=== PATIENT | male | born 1960 | race Caucasian/White ===

== ENCOUNTER → 2018-07-04 | Day surgery (SDC) | payer MEDICARE ==
[~2018-07-04] MED LIST: BUPIVACAINE 0.25% 30ML SDV INJ ONE; FENTANYL CITRATE/PF 100MCG/2 ML INJ ONE; IOPAMIDOL 200 MG/ML 20 ML VIAL IT ONE; LIDOCAINE HCL 1% 30ML-PF VIAL ONE; LUNESTA3 MG PO; MIDAZOLAM HCL 2 MG/2 ML VIAL ONE; NORCO 10-325 T1 EACH PO; OMEPRAZOLE40 MG PO; PROPOFOL IV EMULSION 10 MG/ML 20 ML VIAL ONE; TRAMADOL HCL100 MG PO; TRIAMCINOLONE ACET 40 MG/ML VIAL ONE
--- OUTSIDE RECORDS SUMMARY | 2018-07-04 05:20 | XMS REPORT | Clinical Summary ---
Author Author [facility] Address Unknown Phone Unavailable Care Team Providers Care Mechatronics Technician Name Role Phone David Tracey MD PCP Allergies No Known Allergies Medications End Date Status Medication Sig Dispensed Refills Start Date Active levETIRAcetam (KEPPRA) Take 500 mg 0 500 MG tablet by mouth nightly. Active omeprazole (PriLOSEC) 40 Take 40 mg by 0 MG capsule mouth 2 (two) times a day. Active HYDROcodone-acetaminophen Take 1 tablet 0 (NORCO 10-325) 10-325 mg by mouth 3 per tablet (three) times a day as needed for moderate pain. Active eszopiclone (LUNESTA) 3 Take 3 mg by 0 mg tablet mouth nightly. 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 Last Filed Vital Signs Not on file Plan of Treatment Health Maintenance Due Date Last Done Comments COLON CANCER SCREENING 2008 SHINGLES VACCINES (#1) 2008 INFLUENZA VACCINE 10/03/2018 Results Not on fileafter 07/03/2017 Insurance Payer Benefit Subscriber ID Type Phone Address Plan / Group BCBS BCBS OUT xxxxxxxxxxxx PPO OF STATE Advance Directives Patient has advance care planning documents on file. For more information, bry canas contact: Tristin Frye [address] [facility] [place] [address]
--- OUTSIDE RECORDS SUMMARY | 2018-07-04 05:21 | XMS REPORT | CCD ---
Author Author Auto Generated Organization [facility] Address Unknown Phone Unavailable Care Team Providers Care Cage Unloader Name Role Phone Ayo Sommer Dominic [phone] Allergies, Adverse Reactions, Alerts Substance Reaction Status No Known Allergies Active Problem List Condition Effective Dates Status GERD [Gastroesophageal reflux disease] Active SEIZURES Active Medications Medication Instructions Start Date End Date Status cefazolin 2 gm, Soln-IV, IV Piggyback, Once, 11/11/2012 11/11/2012 Completed infuse over 30 minutes, first dose 11/11/12 7:00:00 CDT, stop date 11/11/12 7:00:00 CDT cefazolin 2 gm, Powder-Inj, IV, Once, first 11/11/2012 11/11/2012 Completed dose 11/11/12 7:31:00 CDT, stop date 11/11/12 7:31:00 CDT neostigmine 3 mg=3 mL, Injection, IV, Once, 11/11/2012 11/11/2012 Completed first dose 11/11/12 8:16:00 CDT, stop date 11/11/12 8:16:00 CDT ephedrine 15 mg=0.3 mL, Injection, IV, Once, 11/11/2012 11/11/2012 Completed first dose 11/11/12 7:47:00 CDT, stop date 11/11/12 7:47:00 CDT [facility] Medication 801.65 mL, Soln-IV, IV, Once, first 11/11/2012 11/11/2012 Completed dose 11/11/12 8:37:08 CDT, stop date 11/11/12 8:37:08 CDT glycopyrrolate 0.4 mg=2 mL, Injection, IV, Once, 11/11/2012 11/11/2012 Completed first dose 11/11/12 8:16:00 CDT, stop date 11/11/12 8:16:00 CDT LR 1,000 mL 1,000 mL, IV, 100 mL/hr, start date 11/11/2012 11/11/2012 Discontinued 11/11/12 6:13:00 CDT, For Adults omeprazole 40 mg 40 mg=1 caps, Oral, Daily, 0 11/05/2012 11/19/2012 Ordered oral delayed release Refill(s) capsule [place] 7.5 mg-325 mg 1 tabs, Oral, q6hr, 0 Refill(s) 11/05/2012 11/19/2012 Ordered oral tablet Keppra 500 mg oral 500 mg=1 tabs, Oral, BID, 0 11/05/2012 11/19/2012 Ordered tablet Refill(s) Lunesta 3 mg oral 3 mg=1 tabs, Oral, qHS, PRN for 11/05/2012 11/19/2012 Ordered tablet insomnia, 0 Refill(s) acetaminophen 1,000 mg, Soln-IV, IV, Once, first 11/11/2012 11/11/2012 Completed dose 11/11/12 7:59:20 CDT, stop date 11/11/12 7:59:20 CDT ondansetron 4 mg=2 mL, Injection, IV, Once, 11/11/2012 11/11/2012 Completed first dose 11/11/12 7:41:00 CDT, stop date 11/11/12 7:41:00 CDT ketorolac 30 mg=1 mL, Injection, IV, Once, 11/11/2012 11/11/2012 Completed first dose 11/11/12 7:41:00 CDT, stop date 11/11/12 7:41:00 CDT midazolam 2 mg=2 mL, Injection, IV, Once, 11/11/2012 11/11/2012 Completed first dose 11/11/12 6:46:00 CDT, stop date 11/11/12 6:46:00 CDT fentanyl 100 mcg=2 mL, Injection, IV, Once, 11/11/2012 11/11/2012 Completed first dose 11/11/12 6:46:00 CDT, stop date 11/11/12 6:46:00 CDT ropivacaine 25 mL, Injection, IV, Once, first 11/11/2012 11/11/2012 Completed dose 11/11/12 6:51:00 CDT, stop date 11/11/12 6:51:00 CDT rocuronium 35 mg=3.5 mL, Injection, IV, Once, 11/11/2012 11/11/2012 Completed first dose 11/11/12 7:35:00 CDT, stop date 11/11/12 7:35:00 CDT lidocaine topical 1 kit, Kit, TOP, Once, first dose 11/11/2012 11/11/2012 Completed 11/11/12 7:35:00 CDT, stop date 11/11/12 7:35:00 CDT propofol 200 mg=20 mL, Emulsion, IV, Once, 11/11/2012 11/11/2012 Completed first dose 11/11/12 7:35:00 CDT, stop date 11/11/12 7:35:00 CDT lidocaine 2 mL, Injection, IV, Once, first 11/11/2012 11/11/2012 Completed dose 11/11/12 7:35:00 CDT, stop date 11/11/12 7:35:00 CDT ondansetron 4 mg=2 mL, Injection, IV Push, 11/11/2012 11/11/2012 Discontinued q30min PRN for nausea/vomiting, order duration: 2 doses, first dose 11/11/12 8:20:00 CDT, stop date Limited # of times labetalol 5 mg=1 mL, Injection, IV Push, 11/11/2012 11/11/2012 Discontinued q5min PRN for hypertension, order duration: 4 doses, first dose 11/11/12 8:20:00 CDT, stop date Limited # of times Demerol HCl 12.5 mg=0.5 mL, Injection, IV Push, 11/11/2012 11/11/2012 Discontinued q5min PRN for pain mild-moderate (1-6), order duration: 4 doses, first dose 11/11/12 8:20:00 CDT, stop date Limited # of times morphine 2 mg=0.2 mL, Injection, IV Push, 11/11/2012 11/11/2012 Discontinued q5min PRN for pain severe (7-10), order duration: 5 doses, first dose 11/11/12 8:20:00 CDT, stop date Limited # of times Vital Signs Most recent to oldest [Reference Range]: 1 2 3 Temperature Oral [35.8-37.3 DegC] 36.9 DegC (11/05/2012 10:33:00) Temperature Tympanic [36.6-38.1 DegC] 36.2 DegC *LOW* (11/11/2012 08:30:00) Temperature Temporal Artery [36.3-37.8 DegC] 36.1 DegC *LOW* (11/11/2012 06:19:00) Peripheral Pulse Rate [55-105 bpm] 58 bpm (11/11/2012 06:19:00) 60 bpm (11/05/2012 10:33:00) Heart Rate Monitored [60-100 bpm] 65 bpm (11/11/2012 09:00:00) 62 bpm (11/11/2012 08:55:00) 64 bpm (11/11/2012 08:50:00) Respiratory Rate [12-20] 12 (11/11/2012 09:00:00) 12 (11/11/2012 08:55:00) 13 (11/11/2012 08:50:00) SpO2 [90-100 %] 97 % (11/11/2012 09:00:00) 97 % (11/11/2012 08:55:00) 97 % (11/11/2012 08:50:00) Systolic Blood Pressure [110-120 mmHg] 152 mmHg *HI* (11/11/2012 09:00:00) 151 mmHg *HI* (11/11/2012 08:55:00) 157 mmHg *HI* (11/11/2012 08:50:00) Diastolic Blood Pressure [65-85 mmHg] 88 mmHg *HI* (11/11/2012 09:00:00) 89 mmHg *HI* (11/11/2012 08:55:00) 89 mmHg *HI* (11/11/2012 08:50:00) Height 175 cm (11/11/2012 06:19:00) Height/Length Estimated 175 cm (11/05/2012 10:33:00) Height/Length Dosing 175.00 cm (11/11/2012 06:19:00) Height Inches 69 in (11/11/2012 06:19:00) Weight 78 kg (11/11/2012 06:19:00) 75.9 kg (11/05/2012 10:33:00) Weight Dosing 78.000 kg (11/11/2012 06:19:00) 75.900 kg (11/05/2012 10:33:00) Weight Pounds 172 lb (11/11/2012 06:19:00) 167 lb (11/05/2012 10:33:00) Body Mass Index 25.47 kg/m2 (11/11/2012 06:19:00) Procedures Procedures Date Related Diagnosis RIGHT FEMUR RIGHT KNEE SCOPE(MANY) RIGTH KNEE REPLACEMENT
--- OUTSIDE RECORDS SUMMARY | 2018-07-04 05:21 | XMS REPORT | Continuity of Care Document ---
Author Author [facility] Interface Address Unknown Phone Unavailable Problems Problem Status Onset Date Classification Date Reported Comments Source Discharge Diagnosis: Primary osteoarthritis, left shoulder 06/05/2016 06/07/2016 [facility] GERD [Gastroesophageal reflux disease] Active Problem 01/22/2013 [facility] Chronic pain Active Problem 06/07/2016 [facility] GERD [Gastroesophageal reflux disease] Active Problem 06/07/2016 [facility] Insomnia Active Problem 06/07/2016 [facility] Osteoarthritis Active Problem 06/07/2016 [facility] SEIZURES Active Problem 06/07/2016 [facility] Medications Medication Details Route Status Patient Instructions Ordering Provider Order Date Source acetaminophen IVPB 1,000 mg, Soln-IV, IV Piggyback, Once, infuse over 15 minutes, first dose 06/05/16 9:00:00 CDT, stop date 06/05/16 9:00:00 CDTNotes: Max 4gm acetaminophen in 24 hours Inactive 06/05/2016 [facility] Misc Medication 500 mL, Soln-IV, IV, Once, first dose 06/05/16 8:35:00 CDT, stop date 06/05/16 8:35:00 CDT Inactive 06/05/2016 [facility] Ketorolac 30 mg=1 mL, Injection, IV Push, Once PRN for pain mild-moderate (1-6), first dose 06/05/16 8:25:00 CDTNotes: "Restricted: No more than 5 days of therapy from any route of administration." Inactive 06/05/2016 [facility] Demerol HCl 12.5 mg=0.5 mL, Injection, IV Push, q5min PRN for shivers, order duration: 4 doses, first dose 06/05/16 8:25:00 CDT, stop date Limited # of times Inactive 06/05/2016 [facility] Morphine 1 mg=0.1 mL, Injection, IV Push, q5min PRN for Pain Moderate (4-6), order duration: 5 doses, first dose 06/05/16 8:25:00 CDT, stop date Limited # of times Inactive 06/05/2016 [facility] Labetalol 5 mg=1 mL, Injection, IV Push, q5min PRN for hypertension, order duration: 4 doses, first dose 06/05/16 8:25:00 CDT, stop date Limited # of times Inactive 06/05/2016 [facility] Ondansetron 4 mg=2 mL, Injection, IV Push, q30min PRN for nausea/vomiting, order duration: 2 doses, first dose 06/05/16 8:25:00 CDT, stop date Limited # of times Inactive 06/05/2016 [facility] propofol 200 mg=20 mL, Emulsion, IV, Once, first dose 06/05/16 7:51:00 CDT, stop date 06/05/16 7:51:00 CDT Inactive 06/05/2016 [facility] succinylcholine 10 mg=0.5 mL, Injection, IV, Once, first dose 06/05/16 7:51:00 CDT, stop date 06/05/16 7:51:00 CDT Inactive 06/05/2016 [facility] ceFAZolin 2 gm, Soln-IV, IV, Once, first dose 06/05/16 7:39:00 CDT, stop date 06/05/16 7:39:00 CDT Inactive 06/05/2016 [facility] ropivacaine 100 mg=20 mL, Injection, IV, Once, first dose 06/05/16 7:03:00 CDT, stop date 06/05/16 7:03:00 CDT Inactive 06/05/2016 [facility] midazolam 4 mg=4 mL, Injection, IV, Once, first dose 06/05/16 7:02:00 CDT, stop date 06/05/16 7:02:00 CDT Inactive 06/05/2016 [facility] fentaNYL 100 mcg=2 mL, Injection, IV, Once, first dose 06/05/16 7:01:00 CDT, stop date 06/05/16 7:01:00 CDT Inactive 06/05/2016 [facility] Lidocaine Hydrochloride 10 MG/ML Injectable Solution 0.5 mL, Injection, Subcutaneous, Once, first dose 06/05/16 7:00:00 CDT, stop date 06/05/16 7:00:00 CDT Inactive 06/05/2016 [facility] Cefazolin 2 gm, Soln-IV, IV Piggyback, Once, infuse over 30 minutes, first dose 06/05/16 7:00:00 CDT, stop date 06/05/16 7:00:00 CDT, Prophylaxis Inactive 06/05/2016 [facility] LR 1,000 mL 1,000 mL, IV, 100 mL/hr, start date 06/05/16 6:18:00 CDT, For Adults Inactive 06/05/2016 [facility] rivaroxaban 10 MG Oral Tablet [Xarelto] 10 mg=1 tabs, Oral, Daily, # 21 tabs, 0 Refill(s) No Longer Active 03/11/2015 [facility] Cyclobenzaprine hydrochloride 5 MG Oral Tablet [Flexeril] 5 mg=1 tabs, Oral, TID, X 10 days, # 30 tabs, 0 Refill(s) [id number] 03/11/2015 [facility] Xarelto 10 mg oral tablet 10 mg=1 tabs, Oral, Daily, # 21 tabs, 0 Refill(s) Active Dre EVANS 03/11/2015 [facility] Flexeril 5 mg oral tablet 5 mg=1 tabs, Oral, TID, X 10 days, # 30 tabs, 0 Refill(s) Active Dre EVANS 03/11/2015 [facility] Acetaminophen 300 MG / Codeine Phosphate 60 MG Oral Tablet [Tylenol with Codeine #4] 1 tabs, Oral, q4hr, # 50 tabs, 0 Refill(s) [id number] 03/11/2015 [facility] Tylenol with Codeine #4 oral tablet 1 tabs, Oral, q4hr, # 50 tabs, 0 Refill(s) Active Dre EVANS 03/11/2015 [facility] ketorolac 10 mg=1 tabs, Tab, Oral, q6hr PRN for pain, first dose 03/10/15 6:00:00 [employer], stop date 03/15/15 0:00:00 [employer]SEL[employer]"Restricted: No more than 5 days of therapy from any route of administration." No Longer Active Dre EVANS 03/10/2015 [facility] Clinton 10 mg-325 mg oral tablet 2 tabs, Tab, Oral, q4hr PRN for pain severe (7-10), first dose 03/09/15 15:38:00 CSTMax 4gm acetaminophen in 24 hours No Longer Active Dre EVANS 03/09/2015 [facility] Xarelto 10 mg=1 tabs, Tab, Oral, Daily, first dose 03/09/15 9:00:00 [employer] No Longer Active Dre EVANS 03/09/2015 [facility] multivitamin with minerals 1 tabs, Tab, Oral, Daily, first dose 03/09/15 9:00:00 [employer] No Longer Active Dre EVANS 03/09/2015 [facility] Vitamin C 500 mg=1 tabs, Tab, Oral, Daily, first dose 03/09/15 9:00:00 [employer] No Longer Active Dre EVANS 03/09/2015 [facility] ketorolac 30 mg=1 mL, Injection, IV Push, q6hr PRN for pain, first dose 03/09/15 1:43:00 [employer]"Restricted: No more than 5 days of therapy from any route of administration." No Longer Active [place] 03/09/2015 [facility] levETIRAcetam 500 mg=1 tabs, Tab, Oral, BID, first dose 03/08/15 21:00:00 [employer], Patient's Own Meds No Longer Active Dre EVANS 03/09/2015 [facility] vancomycin Acute inpatient hospital stay w/in year, 1 gm, IV Piggyback, q12hr, infuse over 60 minutes, first dose 03/08/15 20:00:00 [employer], stop date 03/09/15 11:10:00 [employer] [id number] Dre EVANS 03/09/2015 [facility] ferrous sulfate 325 mg=1 tabs, Tab-DR, Oral, BIDPC, first dose 03/08/15 18:00:00 [employer] No Longer Active Dre EVANS 03/09/2015 [facility] ceFAZolin 1 gm, IV Piggyback, q8hr, infuse over 30 minutes, first dose 03/08/15 17:00:00 [employer], stop date 03/09/15 11:10:00 [employer], Prophylaxis [id number] Dre EVANS 03/08/2015 [facility] omeprazole 40 mg=1 tabs, Cap-EC, Oral, BID, first dose 03/08/15 16:00:00 [employer], Patient's Own Meds No Longer Active Dre EVANS 03/08/2015 [facility] eszopiclone 3 mg=1 EA, Tab, Oral, qHS PRN for insomnia, first dose 03/08/15 14:06:00 [employer], Patient's Own Meds No Longer Active Dre EVANS 03/08/2015 [facility] communication to pharmacist Pharmacist to D/C medications upon transfer, Each, N/A, Once, first dose 03/08/15 13:00:00 [employer], stop date 03/08/15 13:00:00 [employer] [id number] Dre EVANS 03/08/2015 [facility] Patient's Own Home Med BIN 1 EA, Each, N/A, As Indicated PRN for other (see comment), first dose 03/08/15 12:57:00 [employer]SEL[employer], Patient's Own MedsPatient's Own Home Med Bin Access *This is a communcation order to allow access to the patients home med bin* No Longer Active Dre EVANS 03/08/2015 [facility] Patient's Own Home Med BIN 1 EA, Each, N/A, As Indicated PRN for other (see comment), first dose 03/08/15 12:52:00 [employer]ING [employer] COUNSEL[employer], Patient's Own MedsPatient's Own Home Med Bin Access *This is a communcation order to allow access to the patients home med bin* No Longer Active Dre EVANS 03/08/2015 [facility] promethazine IVPB 12.5 mg, IV Piggyback, q4hr PRN for nausea/vomiting, infuse over 15 minutes, first dose 03/08/15 12:51:00 BRE[employer] No Longer Active Dre EVANS 03/08/2015 [facility] Clinton 10 mg-325 mg oral tablet 1 tabs, Tab, Oral, q4hr PRN for Pain Moderate (4-6), first dose 03/08/15 12:51:00 CSTMax 4gm acetaminophen in 24 hours No Longer Active Dre EVANS 03/08/2015 [facility] [place] 7.5 mg-325 mg oral tablet 1 tabs, Tab, Oral, q4hr PRN for Pain Mild (1-3), first dose 03/08/15 12:51:00 CSTMax 4gm acetaminophen in 24 hours No Longer Active Dre EVANS 03/08/2015 [facility] Mylanta 20 mL, Susp, Oral, QID PRN for indigestion, first dose 03/08/15 12:51:00 [employer] No Longer Active Dre EVANS 03/08/2015 [facility] acetaminophen 650 mg=2 supp, Supp, ME, q6hr PRN for fever, first dose 03/08/15 12:51:00 CSTMax 4gm acetaminophen in 24 hours No Longer Active Dre EVANS 03/08/2015 [facility] Saline Lock Flush 10 mL, Soln, IV Push, As Indicated, first dose 03/08/15 12:51:00 [employer] No Longer Active Dre EVANS 03/08/2015 [facility] LR 1,000 mL 1,000 mL, IV, 60 mL/hr, start date 03/08/15 12:51:00 [employer], Change rate to 45ml/hr if using BLEACHER PULP or convert to Saline Lock No Longer Active Dre EVANS 03/08/2015 [facility] Benadryl 25 mg=0.5 mL, Injection, IM, q6hr PRN for itching, first dose 03/08/15 12:51:00 [employer] No Longer Active Dre EVANS 03/08/2015 [facility] temazepam 15 mg=1 caps, Cap, Oral, Once a day (at bedtime) PRN for sleep, first dose 03/08/15 12:51:00 [employer] No Longer Active Dre EVANS 03/08/2015 [facility] Zofran ODT 4 mg=1 tabs, Tab-Dis, Oral, q6hr PRN for nausea/vomiting, first dose 03/08/15 12:51:00 [employer] No Longer Active Dre EVANS 03/08/2015 [facility] bisacodyl 10 mg=1 supp, Supp, ME, Daily PRN for constipation, first dose 03/08/15 12:51:00 [employer]SEL[employer] No Longer Active Dre EVANS 03/08/2015 [facility] Fleet Enema 133 mL, Enema, ME, Once PRN for constipation, first dose 03/08/15 12:51:00 [employer]OR No Longer Active Dre EVANS 03/08/2015 [facility] Milk of Magnesia 30 mL, Susp, Oral, qHS PRN for constipation, first dose 03/08/15 12:51:00 [employer]ING [employer]SELOR No Longer Active Dre EVANS 03/08/2015 [facility] naloxone 0.4 mg=1 mL, Injection, IV Push, q2min PRN for other (see comment), first dose 03/08/15 12:51:00 [employer] No Longer Active Dre EVANS 03/08/2015 [facility] Morphine BLEACHER PULP 2mg/ ml 60 mg 30 mL, BLEACHER PULP Dose (mg): 1, Lockout Interval (min): 6, Limit Amount (mg): 5, Limit Period (hr): 1, Continuous Rate (mg/hr): 0, Loading Dose (mg): 2, RN Adm Bolus (mg): 1, Bolus Dose Lockout (hr): 1, IV, BLEACHER PULP, start date 03/08/15 12:51:00 [employer]SELOR No Longer Active Dre EVANS 03/08/2015 [facility] HYDROmorphone 0.5 mg=0.5 mL, Injection, IV Push, q5min PRN for pain mild-moderate (1-6), order duration: 4 doses, first dose 03/08/15 11:37:00 [employer], stop date 03/08/15 13:00:00 BRE[employer]ING [employer]ER COUNSELOR Inactive [place] 03/08/2015 [facility] Misc Medication 1,100 mL, Soln-IV, IV, Once, first dose 03/08/15 11:11:00 BRE[employer]ING [employer], stop date 03/08/15 11:11:00 BRE[employer]EDING [employer]ER COUNSELOR Inactive Zhou 03/08/2015 [facility] Demerol HCl 12.5 mg=0.5 mL, Injection, IV Push, q5min PRN for Pain Mild (1-3), order duration: 4 doses, first dose 03/08/15 10:53:00 BRE[employer]ING [employer] COUNSEL[employer], stop date Limited # of times Inactive [place] 03/08/2015 [facility] morphine 2 mg, IV Push, q5min PRN for pain severe (7-10), order duration: 5 doses, first dose 03/08/15 10:53:00 BRE[employer]ING [employer]SEL[employer], stop date Limited # of times Inactive Del Angel 03/08/2015 [facility] ondansetron 4 mg=2 mL, Injection, IV Push, q30min PRN for nausea/vomiting, order duration: 2 doses, first dose 03/08/15 10:53:00 BRE[employer]ING [employer], stop date 03/08/15 13:00:00 BRE[employer]ING [employer] COUNSELOR Inactive Del Angel 03/08/2015 [facility] promethazine IVPB 12.5 mg, IV Piggyback, Once PRN for nausea/vomiting, infuse over 15 minutes, first dose 03/08/15 10:53:00 BRE[employer]ING [employer]SELOR Inactive Del Angel 03/08/2015 [facility] neostigmine 4 mg=4 mL, Injection, IV, Once, first dose 03/08/15 10:49:00 BRE[employer]ING [employer], stop date 03/08/15 10:49:00 BRE[employer]EDING [employer] COUNSELOR Inactive Zhou 03/08/2015 [facility] glycopyrrolate 0.6 mg=3 mL, Injection, IV, Once, first dose 03/08/15 10:49:00 BRE[employer]EDING [employer] COUNSELOR, stop date 03/08/15 10:49:00 BRE[employer]FE[employer]ING [employer]ER COUNSELOR Inactive Zhou 03/08/2015 [facility] Misc Medication 1,000 mL, Soln-IV, IV, Once, first dose 03/08/15 10:41:00 BRE[employer]ING [employer] COUNSELOR, stop date 03/08/15 10:41:00 BRE[employer]FEEDING [employer]ER COUNSELOR Inactive [place] 03/08/2015 [facility] ondansetron 4 mg=2 mL, Injection, IV, Once, first dose 03/08/15 10:29:00 BRE[employer]FEEDING [employer] COUNSELOR, stop date 03/08/15 10:29:00 BRE[employer]FEEDING [employer]ER COUNSELOR Inactive Zhou 03/08/2015 [facility] ketorolac 30 mg=1 mL, Injection, IV, Once, first dose 03/08/15 10:29:00 BRE[employer]FEEDING [employer]ER COUNSELOR, stop date 03/08/15 10:29:00 BRE[employer]FEEDING [employer]ER COUNSELOR Inactive Zhou 03/08/2015 [facility] ePHEDrine 10 mg=0.2 mL, Injection, IV, Once, first dose 03/08/15 9:25:00 BRE[employer]FEEDING [employer] COUNSELOR, stop 03/08/15 9:25:00 BRE[employer]FEEDING [employer]ER COUNSELOR Inactive [place] 03/08/2015 [facility] acetaminophen 1,000 mg, Soln-IV, IV, Once, first dose 03/08/15 9:19:00 BRE[employer]ING [employer] COUNSELOR, stop date 03/08/15 9:19:00 BRE[employer]FEEDING [employer]ER COUNSELOR Inactive [place] 03/08/2015 [facility] ceFAZolin 2 gm, Soln-IV, IV, Once, first dose 03/08/15 9:06:00 BRE[employer]FEEDING [employer]ER COUNSELOR, stop date 03/08/15 9:06:00 BRE[employer]FEEDING [employer]ER COUNSELOR Inactive [place] 03/08/2015 [facility] ePHEDrine 10 mg=0.2 mL, Injection, IV, Once, first dose 03/08/15 9:05:00 BRE[employer]FEEDING [employer] COUNSELOR, stop date 03/08/15 9:05:00 BRE[employer]FEEDING [employer]ER COUNSELOR Inactive [place] 03/08/2015 [facility] ceFAZolin 2 gm, Soln-IV, IV Piggyback, Once, infuse over 30 minutes, first dose 03/08/15 9:00:00 BRE[employer]FEEDING [employer] COUNSELOR, stop date 03/08/15 9:00:00 BRE[employer]FEEDING [employer]ER COUNSELOR, Prophylaxis Inactive Dre EVANS 03/08/2015 [facility] vancomycin Increased MRSA rate (facility/procedure), 1 gm, Soln-IV, IV Piggyback, Once, infuse over 60 minutes, first dose 03/08/15 9:00:00 BRE[employer]FEEDING [employer]ER COUNSELOR, stop date 03/08/15 9:00:00 BRE[employer]FEEDING [employer]ER COUNSELOR Inactive Dre EVANS 03/08/2015 [facility] lidocaine 1% injectable solution 0.5 mL, Injection, Subcutaneous, Once, first dose 03/08/15 9:00:00 BRE[employer]FEEDING [employer] COUNSELOR, stop date 03/08/15 9:00:00 BRE[employer]FEEDING [employer]ER COUNSELOR Inactive Del Angel 03/08/2015 [facility] lidocaine 5 mL, Injection, IV, Once, first dose 03/08/15 8:57:00 BRE[employer]FEEDING [employer] COUNSELOR, stop date 03/08/15 8:57:00 BRE[employer]FEEDING [employer]ER COUNSELOR Inactive [place] 03/08/2015 [facility] propofol 200 mg=20 mL, Emulsion, IV, Once, first dose 03/08/15 8:57:00 BRE[employer]EDING [employer]ER COUNSELOR, stop date 03/08/15 8:57:00 BRE[employer]FEEDING [employer]ER COUNSELOR Inactive Zhou 03/08/2015 [facility] fentaNYL 100 mcg=2 mL, Injection, IV, Once, first dose 03/08/15 8:57:00 BRE[employer]FEEDING [employer]ER COUNSELOR, stop date 03/08/15 8:57:00 BRE[employer]FEEDING [employer]ER COUNSELOR Inactive Zhou 03/08/2015 [facility] rocuronium 40 mg=4 mL, Injection, IV, Once, first dose 03/08/15 8:57:00 BRE[employer]FEEDING [employer]ER COUNSELOR, stop date 03/08/15 8:57:00 BRE[employer]FEEDING [employer]ER COUNSELOR Inactive [place] 03/08/2015 [facility] LR 1,000 mL 1,000 mL, IV, 100 mL/hr, start date 03/08/15 8:38:00 BRE[employer]FEEDING [employer]ER COUNSELOR, For Adults Inactive Del Angel 03/08/2015 [facility] ropivacaine 150 mg=30 mL, Injection, IV, Once, first dose 03/08/15 8:29:00 BRE[employer]FEEDING [employer] COUNSELOR, stop date 03/08/15 8:29:00 BRE[employer]FEEDING [employer]ER COUNSELOR Inactive [place] 03/08/2015 [facility] dexamethasone 4 mg=2 mL, Injection, Nerve Block, Once, first dose 03/08/15 8:20:00 BRE[employer]FEEDING [employer] COUNSELOR, stop date 03/08/15 8:20:00 BRE[employer]FEEDING [employer]ER COUNSELOR Inactive [place] 03/08/2015 [facility] ropivacaine 150 mg=30 mL, Injection, IV, Once, first dose 03/08/15 8:20:00 BRE[employer]FEEDING [employer]ER COUNSELOR, stop date 03/08/15 8:20:00 BRE[employer]FEEDING [employer]ER COUNSELOR Inactive [place] 03/08/2015 [facility] midazolam 4 mg=4 mL, Injection, IV, Once, first dose 03/08/15 8:18:00 BRE[employer]FEEDING [employer]ER COUNSELOR, stop date 03/08/15 8:18:00 BRE[employer]FEEDING [employer]ER COUNSELOR Inactive [place] 03/08/2015 [facility] fentaNYL 100 mcg=2 mL, Injection, IV, Once, first dose 03/08/15 8:18:00 BRE[employer]FEEDING [employer]ER COUNSELOR, stop date 03/08/15 8:18:00 BRE[employer]FEEDING [employer]ER COUNSELOR Inactive [place] 03/08/2015 [facility] promethazine IVPB 12.5 mg, IV Piggyback, Once PRN for nausea/vomiting, infuse over 15 minutes, first dose 01/04/15 8:15:00 BRE[employer]FEEDING [employer]ER COUNSELOR Inactive [place]oc[place] 01/04/2015 [facility] morphine 1 mg, IV Push, q5min PRN for Pain Moderate (4- 6), order duration: 5 doses, first dose 01/04/15 8:15:00 BRE[employer]FEEDING [employer] COUNSELOR, stop date Limited # of times Inactive oc01/04/2015 [facility] Demerol HCl 12.5 mg=0.5 mL, Injection, IV Push, q5min PRN for Pain Mild (1-3), order duration: 4 doses, first dose 01/04/15 8:15:00 BRE[employer]FEEDING [employer]ER COUNSELOR, stop date Limited # of times Inactive [facility] 01/04/2015 [facility] Lactated Ringers Injection IV, start date 01/04/15 8:12:00 BRE[employer]FEEDING [employer]ER COUNSELOR, stop date 01/04/15 8:12:00 BREASTFEEDING [employer]ER COUNSELOR Inactive ANGUILLAN 01/04/2015 [facility] Misc Medication 600 mL, Soln-IV, IV, Once, first dose 01/04/15 8:12:00 BRE[employer]FEEDING [employer]ER COUNSELOR, stop date 01/04/15 8:12:00 BRE[employer]FEEDING [employer]ER COUNSELOR Inactive ANGUILLAN 01/04/2015 [facility] neostigmine 2 mg=2 mL, Injection, IV, Once, first dose 01/04/15 7:52:00 BRE[employer]FEEDING [employer]ER COUNSELOR, stop date 01/04/15 7:52:00 BREASTFEEDING [employer]ER COUNSELOR Inactive ANGUILLAN 01/04/2015 [facility] glycopyrrolate 0.2 mg=1 mL, Injection, IV, Once, first dose 01/04/15 7:52:00 BRE[employer]FEEDING [employer]ER COUNSELOR, stop date 01/04/15 7:52:00 BRE[employer]FEEDING [employer]ER COUNSELOR Inactive ANGUILLAN 01/04/2015 [facility] ePHEDrine 10 mg=0.2 mL, Injection, IV, Once, first dose 01/04/15 7:48:00 BRE[employer]FEEDING [employer]ER COUNSELOR, stop date 01/04/15 7:48:00 BRE[employer]FEEDING [employer]ER COUNSELOR Inactive ANGUILLAN 01/04/2015 [facility] phenylephrine 0.1 mg=0.01 mL, Injection, IV, Once, first dose 01/04/15 7:42:00 BRE[employer]FEEDING [employer]ER COUNSELOR, stop date 01/04/15 7:42:00 BREASTFEEDING [employer]ER COUNSELOR Inactive ANGUILLAN 01/04/2015 [facility] phenylephrine 0.1 mg=0.01 mL, Injection, IV, Once, first dose 01/04/15 7:38:00 BRE[employer]FEEDING [employer]ER COUNSELOR, stop date 01/04/15 7:38:00 BREASTFEEDING [employer]ER COUNSELOR Inactive ANGUILLAN 01/04/2015 [facility] phenylephrine 0.1 mg=0.01 mL, Injection, IV, Once, first dose 01/04/15 7:34:00 BREASTFEEDING [employer]ER COUNSELOR, stop date 01/04/15 7:34:00 BREASTFEEDING PEER COUNSELOR Inactive ANGUILLAN 01/04/2015 [facility] phenylephrine 0.1 mg=0.01 mL, Injection, IV, Once, first dose 01/04/15 7:30:00 BRE[employer]FEEDING [employer]ER COUNSELOR, stop date 01/04/15 7:30:00 BRE[employer]FEEDING [employer]ER COUNSELOR Inactive ANGUILLAN 01/04/2015 [facility] dexamethasone 4 mg=1 mL, Injection, IV, Once, first dose 01/04/15 7:30:00 BREASTFEEDING [employer]ER COUNSELOR, stop date 01/04/15 7:30:00 BREASTFEEDING [employer]ER COUNSELOR Inactive ANGUILLAN 01/04/2015 [facility] acetaminophen 1,000 mg, Soln-IV, IV, Once, first dose 01/04/15 7:30:00 BRE[employer]FEEDING [employer]ER COUNSELOR, stop date 01/04/15 7:30:00 BREASTFEEDING [employer]ER COUNSELOR Inactive ANGUILLAN 01/04/2015 [facility] ondansetron 4 mg=2 mL, Injection, IV, Once, first dose 01/04/15 7:30:00 BRE[employer]FEEDING [employer]ER COUNSELOR, stop date 01/04/15 7:30:00 BREASTFEEDING [employer]ER COUNSELOR Inactive ANGUILLAN 01/04/2015 [facility] rocuronium 25 mg=2.5 mL, Injection, IV, Once, first dose 01/04/15 7:07:00 BRE[employer]FEEDING [employer]ER COUNSELOR, stop date 01/04/15 7:07:00 BREASTFEEDING [employer]ER COUNSELOR Inactive ANGUILLAN 01/04/2015 [facility] propofol 200 mg=20 mL, Emulsion, IV, Once, first dose 01/04/15 7:06:00 BREASTFEEDING [employer]ER COUNSELOR, stop date 01/04/15 7:06:00 BREASTFEEDING PEER COUNSELOR Inactive ANGUILLAN 01/04/2015 [facility] lidocaine 2 mL, Injection, IV, Once, first dose 01/04/15 7:06:00 BREASTFEEDING [employer]ER COUNSELOR, stop date 01/04/15 7:06:00 BREASTFEEDING [employer]ER COUNSELOR Inactive ANGUILLAN 01/04/2015 [facility] ceFAZolin 2 gm, Soln-IV, IV, Once, first dose 01/04/15 7:04:00 BREASTFEEDING [employer]ER COUNSELOR, stop date 01/04/15 7:04:00 BREASTFEEDING [employer]ER COUNSELOR Inactive ANGUILLAN 01/04/2015 [facility] ropivacaine 150 mg=30 mL, Injection, Interscalene, Once, first dose 01/04/15 6:50:00 BRE[employer]FEEDING [employer]ER COUNSELOR, stop date 01/04/15 6:50:00 BREASTFEEDING [employer]ER COUNSELOR Inactive ANGUILLAN 01/04/2015 [facility] fentaNYL 100 mcg=2 mL, Injection, IV, Once, first dose 01/04/15 6:48:00 BRE[employer]FEEDING [employer]ER COUNSELOR, stop date 01/04/15 6:48:00 BRE[employer]FEEDING [employer]ER COUNSELOR Inactive ANGUILLAN 01/04/2015 [facility] midazolam 2 mg=2 mL, Injection, IV, Once, first dose 01/04/15 6:48:00 BRE[employer]FEEDING [employer]ER COUNSELOR, stop date 01/04/15 6:48:00 BREASTFEEDING [employer]ER COUNSELOR Inactive ANGUILLAN 01/04/2015 [facility] Misc Medication 596.82 mL, Soln-IV, IV, Once, first dose 01/20/13 10:26:46 BRE[employer]FEEDING [employer]ER COUNSELOR, stop date 01/20/13 10:26:46 BRE[employer]EDING [employer]ER COUNSELOR IV Completed [place]01/20/2013 [facility] promethazine IVPB 12.5 mg, IV Piggyback, Once PRN for nausea/vomiting, infuse over 15 minutes, first dose 01/20/13 10:17:00 BRE[employer] IV Piggyback No Longer Active Lastoc[facility] 01/20/2013 [facility] Demerol HCl 12.5 mg=0.5 mL, Injection, IV Push, q5min PRN for pain mild-moderate (1-6), order duration: 4 doses, first dose 01/20/13 10:17:00 BRE[employer]EDING [employer] COUNSELOR, stop date Limited # of times IV Push No Longer Active Last[facility] 01/20/2013 [facility] morphine 2 mg=0.2 mL, Injection, IV Push, q5min PRN for pain severe (7-10), order duration: 5 doses, first dose 01/20/13 10:17:00 BRE[employer]EDING [employer] COUNSELOR, stop date Limited # of times IV Push No Longer Active Lastoc 01/20/2013 [facility] acetaminophen 1,000 mg, Soln-IV, IV, Once, first dose 01/20/13 10:06:00 BRE[employer]EDING [employer]ER COUNSELOR, stop date 01/20/13 10:06:00 BRE[employer]FEEDING [employer]ER COUNSELOR IV Completed [place]01/20/2013 [facility] ondansetron 4 mg=2 mL, Injection, IV, Once, first dose 01/20/13 10:03:00 [employer], stop date 01/20/13 10:03:00 [employer] IV Completed [facility]01/20/2013 [facility] ketorolac 30 mg=1 mL, Injection, IV, Once, first dose 01/20/13 10:03:00 BRE[employer]FEEDING PEER COUNSELOR, stop date 01/20/13 10:03:00 BREASTFEEDING PEER COUNSELOR IV Completed [place] 01/20/2013 [facility] cefazolin 2 gm, Soln-IV, IV Piggyback, Once, infuse over 30 minutes, first dose 01/20/13 10:00:00 BREASTFEEDING PEER COUNSELOR, stop date 01/20/13 10:00:00 BREASTFEEDING PEER COUNSELOR IV Piggyback Completed [place] 01/20/2013 [facility] lidocaine 1% injectable solution 0.5 mL, Injection, Subcutaneous, Once, first dose 01/20/13 10:00:00 BRE[employer]FEEDING [employer]ER COUNSELOR, stop date 01/20/13 10:00:00 BRE[employer]FEEDING [employer]ER COUNSELOR Subcutaneous Completed [place] 01/20/2013 [facility] succinylcholine 80 mg=4 mL, Injection, IV, Once, first dose 01/20/13 9:49:00 BREASTFEEDING PEER COUNSELOR, stop date 01/20/13 9:49:00 BREASTFEEDING PEER COUNSELOR IV Completed [place]01/20/2013 [facility] fentanyl 100 mcg=2 mL, Injection, IV, Once, first dose 01/20/13 9:49:00 BREASTFEEDING PEER COUNSELOR, date 01/20/13 9:49:00 BREASTFEEDING PEER COUNSELOR IV Completed [place]01/20/2013 [facility] propofol 200 mg=20 mL, Emulsion, IV, Once, first dose 01/20/13 9:49:00 BREASTFEEDING PEER COUNSELOR, stop date 01/20/13 9:49:00 BREASTFEEDING PEER COUNSELOR IV Completed [place]01/20/2013 [facility] lidocaine 4 mL, Injection, IV, Once, first dose 01/20/13 9:46:00 BREASTFEEDING PEER COUNSELOR, stop date 01/20/13 9:46:00 BREASTFEEDING PEER COUNSELOR IV Completed [place]01/20/2013 [facility] midazolam 2 mg=2 mL, Injection, IV, Once, first dose 01/20/13 9:44:00 BREASTFEEDING [employer]ER COUNSELOR, stop date 01/20/13 9:44:00 BREASTFEEDING PEER COUNSELOR IV Completed [place]01/20/2013 [facility] famotidine 2 mg, Injection, IV, Once, first dose 01/20/13 9:44:00 BREASTFEEDING PEER COUNSELOR, stop date 01/20/13 9:44:00 BREASTFEEDING PEER COUNSELOR IV Completed [place] 01/20/2013 [facility] LR 1,000 mL 1,000 mL, IV, 100 mL/hr, start date 01/20/13 9:07:00 BREASTFEEDING [employer] COUNSELOR, For Adults IV No Longer Active [place] 01/20/2013 [facility] Misc Medication 801.65 mL, Soln-IV, IV, Once, first dose 11/11/12 8:37:08 CDT, stop date 11/11/12 8:37:08 CDT IV Completed [place] 11/11/2012 [facility] ondansetron 4 mg=2 mL, Injection, IV Push, q30min PRN for nausea/vomiting, order duration: 2 doses, first dose 11/11/12 8:20:00 CDT, stop date Limited # of times IV Push No Longer Active Ari 11/11/2012 [facility] labetalol 5 mg=1 mL, Injection, IV Push, q5min PRN for hypertension, order duration: 4 doses, first dose 11/11/12 8:20:00 CDT, stop date Limited # of times IV Push No Longer Active [place] 11/11/2012 [facility] Demerol HCl 12.5 mg=0.5 mL, Injection, IV Push, q5min PRN for pain mild-moderate (1-6), order duration: 4 doses, first dose 11/11/12 8:20:00 CDT, stop date Limited # of times IV Push No Longer Active [facility] 11/11/2012 [facility] morphine 2 mg=0.2 mL, Injection, IV Push, q5min PRN for pain severe (7-10), order duration: 5 doses, first dose 11/11/12 8:20:00 CDT, stop date Limited # of times IV Push No Longer Active [facility] 11/11/2012 [facility] neostigmine 3 mg=3 mL, Injection, IV, Once, first dose 11/11/12 8:16:00 CDT, stop date 11/11/12 8:16:00 CDT IV Completed [place] 11/11/2012 [facility] glycopyrrolate 0.4 mg=2 mL, Injection, IV, Once, first dose 11/11/12 8:16:00 CDT, stop date 11/11/12 8:16:00 CDT IV Completed aniceto 11/11/2012 [facility] acetaminophen 1,000 mg, Soln-IV, IV, Once, first dose 11/11/12 7:59:20 CDT, stop date 11/11/12 7:59:20 CDT IV Completed [place] 11/11/2012 [facility] ephedrine 15 mg=0.3 mL, Injection, IV, Once, first dose 11/11/12 7:47:00 CDT, stop date 11/11/12 7:47:00 CDT IV Completed aniceto 11/11/2012 [facility] ondansetron 4 mg=2 mL, Injection, IV, Once, first dose 11/11/12 7:41:00 CDT, stop date 11/11/12 7:41:00 CDT IV Completed aniceto 11/11/2012 [facility] ketorolac 30 mg=1 mL, Injection, IV, Once, first dose 11/11/12 7:41:00 CDT, stop date 11/11/12 7:41:00 CDT IV Completed [place] 11/11/2012 [facility] rocuronium 35 mg=3.5 mL, Injection, IV, Once, first dose 11/11/12 7:35:00 CDT, stop date 11/11/12 7:35:00 CDT IV Completed [place] 11/11/2012 [facility] lidocaine topical 1 kit, Kit, TOP, Once, first dose 11/11/12 7:35:00 CDT, stop date 11/11/12 7:35:00 CDT TOP Completed [place] 11/11/2012 [facility] propofol 200 mg=20 mL, Emulsion, IV, Once, first dose 11/11/12 7:35:00 CDT, stop date 11/11/12 7:35:00 CDT IV Completed [place] 11/11/2012 [facility] lidocaine 2 mL, Injection, IV, Once, first dose 11/11/12 7:35:00 CDT, stop date 11/11/12 7:35:00 CDT IV Completed [place] 11/11/2012 [facility] cefazolin 2 gm, Powder-Inj, IV, Once, first dose 11/11/12 7:31:00 CDT, stop date 11/11/12 7:31:00 CDT IV Completed [place] 11/11/2012 [facility] cefazolin 2 gm, Soln-IV, IV Piggyback, Once, infuse over 30 minutes, first dose 11/11/12 7:00:00 CDT, stop date 11/11/12 7:00:00 CDT IV Piggyback Completed [place] 11/11/2012 [facility] ropivacaine 25 mL, Injection, IV, Once, first dose 11/11/12 6:51:00 CDT, stop date 11/11/12 6:51:00 CDT IV Completed [place] 11/11/2012 [facility] midazolam 2 mg=2 mL, Injection, IV, Once, first dose 11/11/12 6:46:00 CDT, stop date 11/11/12 6:46:00 CDT IV Completed [place] 11/11/2012 [facility] fentanyl 100 mcg=2 mL, Injection, IV, Once, first dose 11/11/12 6:46:00 CDT, stop date 11/11/12 6:46:00 CDT IV Completed [place] 11/11/2012 [facility] LR 1,000 mL 1,000 mL, IV, 100 mL/hr, start date 11/11/12 6:13:00 CDT, For Adults IV No Longer Active [facility] 11/11/2012 [facility] omeprazole 40 mg oral delayed release capsule 40 mg=1 caps, Oral, Daily, 0 Refill(s) Active 11/05/2012 [facility] Clinton 7.5 mg-325 mg oral tablet 1 tabs, Oral, q6hr, 0 Refill(s) Active 11/05/2012 [facility] Lunesta 3 mg oral tablet 3 mg=1 tabs, Oral, qHS, PRN for insomnia, 0 Refill(s) Active 11/05/2012 [facility] Omeprazole 40 MG Enteric Coated Capsule 40 mg=1 caps, Oral, Daily, 0 Refill(s) Active 11/05/2012 [facility] Acetaminophen 325 MG / Hydrocodone Bitartrate 7.5 MG Oral Tablet [Cl[place] 7.5/325] 1 tabs, Oral, q6hr, 0 Refill(s) Active 11/05/2012 [facility] Eszopiclone 3 MG Oral Tablet [Lunesta] 3 mg=1 tabs, Oral, qHS, PRN for insomnia, 0 Refill(s) Active 11/05/2012 [facility] Keppra 500 mg oral tablet 500 mg=1 tabs, Oral, BID, 0 Refill(s) Active 11/05/2012 [facility] Levetiracetam 500 MG Oral Tablet [Keppra] 500 mg=1 tabs, Oral, BID, 0 Refill(s) Active 11/05/2012 [facility] Allergies, Adverse Reactions, Alerts Substance Category Reaction Severity Reaction type Status Date Reported Comments Source Immunizations Immunization Date Given Site Status Last Updated Comments Source Results Order Name Results Value Reference Range Date Interpretation Comments Source LABORATORY FIO2 21 % 06/05/2016 [facility] LAB[facility]ORY FIO2 21 % 03/08/2015 [facility] LABORATORY FIO2 21 % 01/20/2013 [facility] Vital Signs Vital Sign Value Date Comments Source Heart Rate 86 06/05/2016 [facility] Systolic (mm Hg) 152 06/05/2016 [facility] Diastolic (mm Hg) 77 06/05/2016 [facility] Respitory Rate 13 06/05/2016 [facility] Heart Rate 86 06/05/2016 [facility] Systolic (mm Hg) 152 06/05/2016 [facility] Diastolic (mm Hg) 82 06/05/2016 [facility] Respitory Rate 12 06/05/2016 [facility] Systolic (mm Hg) 152 06/05/2016 [facility] Diastolic (mm Hg) 75 06/05/2016 [facility] Heart Rate 84 06/05/2016 [facility] Respitory Rate 14 06/05/2016 [facility] Temperature Oral (F) 36.2 Ekaterina 06/05/2016 [facility] Weight Measured 78 06/05/2016 [facility] Height 175 cm 06/05/2016 [facility] Temperature Oral (F) 36.4 Ekaterina 06/05/2016 [facility] Peripheral Pulse Rate 76 06/05/2016 [facility] Weight Measured 78 05/29/2016 [facility] Height 175 cm 05/29/2016 [facility] Heart Rate 97 03/11/2015 [facility] Respitory Rate 16 03/11/2015 [facility] Systolic (mm Hg) <content ID='[id number]'>141</content>/<content ID='[id number]'>89</content> 03/11/2015 [facility] Temperature Oral (F) 36.9 Ekaterina 03/11/2015 [facility] Heart Rate 92 03/11/2015 [facility] Respitory Rate 18 03/11/2015 [facility] Systolic (mm Hg) <content ID='[id number]'>145</content>/<content ID='[id number]'>84</content> 03/11/2015 [facility] Temperature Oral (F) 36.7 Ekaterina 03/11/2015 [facility] Systolic (mm Hg) <content ID='[id number]'>163</content>/<content ID='[id number]'>94</content> 03/11/2015 [facility] Respitory Rate 16 03/11/2015 [facility] Heart Rate 100 03/11/[facility] Temperature Oral (F) 37.4 Ekaterina 03/11/2015 [facility] Peripheral Pulse Rate 89 03/09/2015 [facility] Peripheral Pulse Rate 94 03/09/2015 [facility] Peripheral Pulse Rate 77 03/09/2015 [facility] Temperature Oral (F) 36.9 Ekaterina 03/08/2015 [facility] Temperature Oral (F) 36.6 Ekaterina 03/08/2015 [facility] Height 175 cm 03/08/2015 [facility] Weight 80.4 03/08/2015 [facility] Weight 26 03/08/2015 [facility] Weight 26.25 02/24/2015 [facility] Weight 80.4 02/24/2015 [facility] Height 175 cm 02/24/2015 [facility] Systolic (mm Hg) <content ID='[id number]'>138</content>/<content ID='[id number]'>76</content> 01/04/2015 [facility] Heart Rate 60 01/04/2015 [facility] Respitory Rate 11 01/04/2015 [facility] Heart Rate 60 01/04/2015 [facility] Systolic (mm Hg) <content ID='[id number]'>135</content>/<content ID='[id number]'>77</content> 01/04/2015 [facility] Respitory Rate 10 01/04/2015 [facility] Respitory Rate 11 01/04/2015 [facility] Heart Rate 66 01/04/2015 [facility] Systolic (mm Hg) <content ID='[id number]'>116</content>/<content ID='[id number]'>77</content> 01/04/2015 [facility] Temperature Oral (F) 36.3 Ekaterina 01/04/2015 [facility] Temperature Oral (F) 37 Ekaterina 01/04/2015 [facility] Peripheral Pulse Rate 71 01/04/2015 [facility] Weight 27 01/04/2015 [facility] Weight 83.3 01/04/2015 [facility] Height 175 cm 01/04/2015 [facility] Height 175 cm 12/24/2014 [facility] Weight 83.3 12/24/2014 [facility] Weight 27.2 12/24/2014 [facility] Systolic (mm Hg) 145 01/20/2013 [facility] Respitory Rate 16 01/20/2013 [facility] Diastolic (mm Hg) 69 01/20/2013 [facility] Heart Rate 81 01/20/2013 [facility] Diastolic (mm Hg) 88 01/20/2013 [facility] Systolic (mm Hg) 140 01/20/2013 [facility] Heart Rate 76 01/20/2013 [facility] Respitory Rate 14 01/20/2013 [facility] Diastolic (mm Hg) 85 01/20/2013 [facility] Systolic (mm Hg) 142 01/20/2013 [facility] Respitory Rate 14 01/20/2013 [facility] Heart Rate 78 01/20/2013 [facility] Temperature Oral (F) 36.2 Ekaterina 01/20/2013 [facility] Body Mass Index 27.20 01/20/2013 [facility] Heart Rate 70 01/20/2013 [facility] Weight 83.3 01/20/2013 [facility] Height 175 cm 01/20/2013 [facility] Body Mass Index 27.20 01/17/2013 [facility] Weight 83.3 01/17/2013 [facility] Height 175 cm 01/17/2013 [facility] Heart Rate 77 01/17/2013 [facility] Temperature Oral (F) 36.6 Ekaterina 01/17/2013 [facility] Diastolic (mm Hg) 88 11/11/2012 [facility] Systolic (mm Hg) 152 11/11/2012 [facility] Respitory Rate 12 11/11/2012 [facility] Heart Rate 65 11/11/2012 [facility] Systolic (mm Hg) 151 11/11/2012 [facility] Respitory Rate 12 11/11/2012 [facility] Heart Rate 62 11/11/2012 [facility] Diastolic (mm Hg) 89 11/11/2012 [facility] Diastolic (mm Hg) 89 11/11/2012 [facility] Systolic (mm Hg) 157 11/11/2012 [facility] Heart Rate 64 11/11/2012 [facility] Respitory Rate 13 11/11/2012 [facility] Temperature Oral (F) 36.2 Ekaterina 11/11/2012 [facility] Weight 78 11/11/2012 [facility] Height 175 cm 11/11/2012 [facility] Body Mass Index 25.47 11/11/2012 [facility] Heart Rate 58 11/11/2012 [facility] Height 175 cm 11/05/2012 [facility] Heart Rate 60 11/05/2012 [facility] Temperature Oral (F) 36.9 Ekaterina 11/05/2012 [facility] Weight 75.9 11/05/2012 [facility] Encounters Location Location Details Encounter Type Encounter Number Reason For Visit Attending Provider ADM Date DC Date Status Source [facility] Outpatient [id number] Ayo Kemal 11/11/2012 11/11/2012 Active [facility] Outpatient [id number] Ayo Kemal 01/20/2013 01/20/2013 Active [facility] Outpatient [id number] Ayo Kemal 01/04/2015 01/04/2015 Active [facility] Inpatient [id number] Fox Erickson MD 03/08/2015 03/11/2015 Active [facility] Outpatient [id number] Ayo Kemal 06/05/2016 06/05/2016 Active [facility] Outpatient [id number] Ayo Kemal 06/05/2016 06/05/2016 [facility] Procedures Procedure Code Date Perfomer Comments Source Introduction of Regional Anesthetic into Peripheral Nerves and Plexi, Percutaneous Approach 03/08/2015 [facility] Replacement of Left Knee Joint with Synthetic Substitute, Cemented, Open Approach 03/08/2015 [facility] right shoulder scope [facility] RIGHT FEMUR [facility] RIGHT KNEE SCOPE(MANY) [facility] RIGTH KNEE REPLACEMENT [facility] left knee replacement [facility]
--- OUTSIDE RECORDS SUMMARY | 2018-07-04 05:21 | XMS REPORT | CCD ---
Author Author Auto Generated Organization [facility] Address Unknown Phone Unavailable Care Team Providers Care Youth Advocate Name Role Phone Ayo Sommer [phone] Allergies, Adverse Reactions, Alerts Substance Reaction Status No Known Allergies Active Problem List Condition Effective Dates Status GERD [Gastroesophageal reflux disease] Active SEIZURES Active Medications Medication Instructions Start Date End Date Status promethazine IVPB 12.5 mg, IV Piggyback, Once PRN for 01/04/2015 01/04/2015 Discontinued nausea/vomiting, infuse over 15 minutes, first dose 01/04/15 8:15:00 [employer] morphine 1 mg, IV Push, q5min PRN for Pain 01/04/2015 01/04/2015 Discontinued Moderate (4-6), order duration: 5 doses, first dose 01/04/15 8:15:00 [employer], stop date Limited # of times Demerol HCl 12.5 mg=0.5 mL, Injection, IV Push, 01/04/2015 01/04/2015 Discontinued q5min PRN for Pain Mild (1-3), order duration: 4 doses, first dose 01/04/15 8:15:00 [employer], stop date Limited # of times morphine 2 mg, IV Push, q5min PRN for pain 01/04/2015 01/04/2015 Discontinued severe (7-10), order duration: 5 doses, first dose 01/04/15 8:15:00 [employer], stop date Limited # of times ePHEDrine 10 mg=0.2 mL, Injection, IV, Once, 01/04/2015 01/04/2015 Completed first dose 01/04/15 7:48:00 [employer], stop date 01/04/15 7:48:00 [employer] Lactated Ringers IV, start date 01/04/15 8:12:00 01/04/2015 01/04/2015 Completed Injection [employer], stop date 01/04/15 8:12:00 [employer] phenylephrine 0.1 mg=0.01 mL, Injection, IV, 01/04/2015 01/04/2015 Completed Once, first dose 01/04/15 7:38:00 [employer], stop date 01/04/15 7:38:00 [employer] neostigmine 2 mg=2 mL, Injection, IV, Once, 01/04/2015 01/04/2015 Completed first dose 01/04/15 7:52:00 [employer], stop date 01/04/15 7:52:00 [employer] glycopyrrolate 0.2 mg=1 mL, Injection, IV, Once, 01/04/2015 01/04/2015 Completed first dose 01/04/15 7:52:00 [employer], stop date 01/04/15 7:52:00 [employer] Misc Medication 600 mL, Soln-IV, IV, Once, first 01/04/2015 01/04/2015 Completed dose 01/04/15 8:12:00 [employer], stop date 01/04/15 8:12:00 [employer] phenylephrine 0.1 mg=0.01 mL, Injection, IV, 01/04/2015 01/04/2015 Completed Once, first dose 01/04/15 7:30:00 [employer], stop date 01/04/15 7:30:00 [employer] phenylephrine 0.1 mg=0.01 mL, Injection, IV, 01/04/2015 01/04/2015 Completed Once, first dose 01/04/15 7:42:00 [employer], stop date 01/04/15 7:42:00 [employer] phenylephrine 0.1 mg=0.01 mL, Injection, IV, 01/04/2015 01/04/2015 Completed Once, first dose 01/04/15 7:34:00 [employer], stop date 01/04/15 7:34:00 [employer] fentaNYL 100 mcg=2 mL, Injection, IV, Once, 01/04/2015 01/04/2015 Completed first dose 01/04/15 6:48:00 [employer], stop date 01/04/15 6:48:00 [employer] dexamethasone 4 mg=1 mL, Injection, IV, Once, 01/04/2015 01/04/2015 Completed first dose 01/04/15 7:30:00 [employer], stop date 01/04/15 7:30:00 [employer] acetaminophen 1,000 mg, Soln-IV, IV, Once, first 01/04/2015 01/04/2015 Completed dose 01/04/15 7:30:00 [employer], stop date 01/04/15 7:30:00 [employer] propofol 200 mg=20 mL, Emulsion, IV, Once, 01/04/2015 01/04/2015 Completed first dose 01/04/15 7:06:00 [employer], stop date 01/04/15 7:06:00 [employer] lidocaine 2 mL, Injection, IV, Once, first 01/04/2015 01/04/2015 Completed dose 01/04/15 7:06:00 [employer], stop date 01/04/15 7:06:00 [employer] ondansetron 4 mg=2 mL, Injection, IV, Once, 01/04/2015 01/04/2015 Completed first dose 01/04/15 7:30:00 [employer], stop date 01/04/15 7:30:00 [employer] rocuronium 25 mg=2.5 mL, Injection, IV, Once, 01/04/2015 01/04/2015 Completed first dose 01/04/15 7:07:00 [employer], stop date 01/04/15 7:07:00 [employer] ceFAZolin 2 gm, Soln-IV, IV, Once, first dose 01/04/2015 01/04/2015 Completed 01/04/15 7:04:00 [employer], stop date 01/04/15 7:04:00 [employer] midazolam 2 mg=2 mL, Injection, IV, Once, 01/04/2015 01/04/2015 Completed first dose 01/04/15 6:48:00 [employer], stop date 01/04/15 6:48:00 [employer] ropivacaine 150 mg=30 mL, Injection, 01/04/2015 01/04/2015 Completed Interscalene, Once, first dose 01/04/15 6:50:00 [employer], stop date 01/04/15 6:50:00 [employer] omeprazole 40 mg 40 mg=1 caps, Oral, Daily, 0 11/05/2012 11/19/2012 Ordered oral delayed release Refill(s) capsule Leland 7.5 mg-325 mg 1 tabs, Oral, q6hr, 0 Refill(s) 11/05/2012 11/19/2012 Ordered oral tablet Keppra 500 mg oral 500 mg=1 tabs, Oral, BID, 0 11/05/2012 11/19/2012 Ordered tablet Refill(s) Lunesta 3 mg oral 3 mg=1 tabs, Oral, qHS, PRN for 11/05/2012 11/19/2012 Ordered tablet insomnia, 0 Refill(s) Vital Signs Most recent to oldest [Reference Range]: 1 2 3 Temperature Tympanic [36.6-38.1 DegC] 36.3 DegC *LOW* (01/04/2015 08:05:00) 37 DegC (01/04/2015 05:59:00) Temperature Tympanic Fahrenheit 97.34 (01/04/2015 08:05:00) Peripheral Pulse Rate [55-105 bpm] 71 bpm (01/04/2015 05:59:00) Heart Rate Monitored [60-100 bpm] 60 bpm (01/04/2015 08:55:00) 60 bpm (01/04/2015 08:45:00) 66 bpm (01/04/2015 08:35:00) Respiratory Rate [12-20] 11 *LOW* (01/04/2015 08:55:00) 10 *LOW* (01/04/2015 08:45:00) 11 *LOW* (01/04/2015 08:35:00) SpO2 [90-100 %] 95 % (01/04/2015 08:55:00) 95 % (01/04/2015 08:45:00) 97 % (01/04/2015 08:35:00) Blood Pressure [110-120/65-85 mmHg] <content ID='[id number]'>138</content>/<content ID='[id number]'>76</content> mmHg *HI* (01/04/2015 08:55:00) <content ID='[id number]'>135</content>/<content ID='[id number]'>77</content> mmHg *HI* (01/04/2015 08:45:00) <content ID='[id number]'>116</content>/<content ID='[id number]'>77</content> mmHg (01/04/2015 08:35:00) Most recent to oldest [Reference Range]: 1 2 3 Height 175 cm (01/04/2015 05:59:00) 175 cm (12/24/2014 13:53:00) Height/Length Estimated 175 cm (12/24/2014 13:53:00) Height/Length Dosing 175 cm (01/04/2015 05:59:00) 175 cm (12/24/2014 13:53:00) Height Inches 69 in (01/04/2015 05:59:00) 69 in (12/24/2014 13:53:00) Weight 83.3 kg (01/04/2015 05:59:00) 83.3 kg (12/24/2014 13:53:00) Weight Dosing 83.3 kg (01/04/2015 05:59:00) 83.3 kg (12/24/2014 13:53:00) Weight Pounds 183 lb (01/04/2015 05:59:00) 183 lb (12/24/2014 13:53:00) Body Mass Index 27 kg/m2 (01/04/2015 05:59:00) 27.2 kg/m2 (12/24/2014 13:53:00) Procedures Procedures Date Related Diagnosis right shoulder scope
--- OUTSIDE RECORDS SUMMARY | 2018-07-04 05:21 | XMS REPORT | CCD ---
Author Author Auto Generated Organization [facility] Address Unknown Phone Unavailable Care Team Providers Care Slope Runner Name Role Phone Ayo Sommer Dominic [phone] Allergies, Adverse Reactions, Alerts Substance Reaction Status No Known Allergies Active Problem List Condition Effective Dates Status GERD [Gastroesophageal reflux disease] Active SEIZURES Active Medications Medication Instructions Start Date End Date Status [facility] Medication 596.82 mL, Soln-IV, IV, Once, first 01/20/2013 01/20/2013 Completed dose 01/20/13 10:26:46 FLORAL CLERK, stop date 01/20/13 10:26:46 FLORAL CLERK acetaminophen 1,000 mg, Soln-IV, IV, Once, first 01/20/2013 01/20/2013 Completed dose 01/20/13 10:06:00 FLORAL CLERK, stop date 01/20/13 10:06:00 FLORAL CLERK succinylcholine 80 mg=4 mL, Injection, IV, Once, 01/20/2013 01/20/2013 Completed first dose 01/20/13 9:49:00 FLORAL CLERK, stop date 01/20/13 9:49:00 FLORAL CLERK ondansetron 4 mg=2 mL, Injection, IV, Once, 01/20/2013 01/20/2013 Completed first dose 01/20/13 10:03:00 FLORAL CLERK, stop date 01/20/13 10:03:00 FLORAL CLERK fentanyl 100 mcg=2 mL, Injection, IV, Once, 01/20/2013 01/20/2013 Completed first dose 01/20/13 9:49:00 FLORAL CLERK, stop date 01/20/13 9:49:00 FLORAL CLERK lidocaine 4 mL, Injection, IV, Once, first 01/20/2013 01/20/2013 Completed dose 01/20/13 9:46:00 FLORAL CLERK, stop date 01/20/13 9:46:00 FLORAL CLERK midazolam 2 mg=2 mL, Injection, IV, Once, 01/20/2013 01/20/2013 Completed first dose 01/20/13 9:44:00 FLORAL CLERK, stop date 01/20/13 9:44:00 FLORAL CLERK propofol 200 mg=20 mL, Emulsion, IV, Once, 01/20/2013 01/20/2013 Completed first dose 01/20/13 9:49:00 FLORAL CLERK, stop date 01/20/13 9:49:00 FLORAL CLERK ketorolac 30 mg=1 mL, Injection, IV, Once, 01/20/2013 01/20/2013 Completed first dose 01/20/13 10:03:00 FLORAL CLERK, stop date 01/20/13 10:03:00 FLORAL CLERK famotidine 2 mg, Injection, IV, Once, first 01/20/2013 01/20/2013 Completed dose 01/20/13 9:44:00 FLORAL CLERK, stop date 01/20/13 9:44:00 FLORAL CLERK cefazolin 2 gm, Soln-IV, IV Piggyback, Once, 01/20/2013 01/20/2013 Completed infuse over 30 minutes, first dose 01/20/13 10:00:00 FLORAL CLERK, stop date 01/20/13 10:00:00 FLORAL CLERK promethazine IVPB 12.5 mg, IV Piggyback, Once PRN for 01/20/2013 01/20/2013 Discontinued nausea/vomiting, infuse over 15 minutes, first dose 01/20/13 10:17:00 FLORAL CLERK Demerol HCl 12.5 mg=0.5 mL, Injection, IV Push, 01/20/2013 01/20/2013 Discontinued q5min PRN for pain mild-moderate (1-6), order duration: 4 doses, first dose 01/20/13 10:17:00 FLORAL CLERK, stop date Limited # of times morphine 2 mg=0.2 mL, Injection, IV Push, 01/20/2013 01/20/2013 Discontinued q5min PRN for pain severe (7-10), order duration: 5 doses, first dose 01/20/13 10:17:00 FLORAL CLERK, stop date Limited # of times LR 1,000 mL 1,000 mL, IV, 100 mL/hr, start date 01/20/2013 01/20/2013 Discontinued 01/20/13 9:07:00 FLORAL CLERK, For Adults lidocaine 1% 0.5 mL, Injection, Subcutaneous, 01/20/2013 01/20/2013 Completed injectable solution Once, first dose 01/20/13 10:00:00 FLORAL CLERK, stop date 01/20/13 10:00:00 FLORAL CLERK omeprazole 40 mg 40 mg=1 caps, Oral, Daily, 0 11/05/2012 11/19/2012 Ordered oral delayed release Refill(s) capsule [place] 7.5 mg-325 mg 1 tabs, Oral, q6hr, 0 Refill(s) 11/05/2012 11/19/2012 Ordered oral tablet Keppra 500 mg oral 500 mg=1 tabs, Oral, BID, 0 11/05/2012 11/19/2012 Ordered tablet Refill(s) Lunesta 3 mg oral 3 mg=1 tabs, Oral, qHS, PRN for 11/05/2012 11/19/2012 Ordered tablet insomnia, 0 Refill(s) Vital Signs Most recent to oldest [Reference Range]: 1 2 3 Temperature Oral [35.8-37.3 DegC] 36.6 DegC (01/17/2013 09:13:00) Temperature Tympanic [36.6-38.1 DegC] 36.2 DegC *LOW* (01/20/2013 10:20:00) Temperature Temporal Artery [36.3-37.8 DegC] 36.4 DegC (01/20/2013 09:09:00) Peripheral Pulse Rate [55-105 bpm] 70 bpm (01/20/2013 09:09:00) 77 bpm (01/17/2013 09:13:00) Heart Rate Monitored [60-100 bpm] 81 bpm (01/20/2013 10:35:00) 76 bpm (01/20/2013 10:30:00) 78 bpm (01/20/2013 10:25:00) Respiratory Rate [12-20] 16 (01/20/2013 10:35:00) 14 (01/20/2013 10:30:00) 14 (01/20/2013 10:25:00) SpO2 [90-100 %] 95 % (01/20/2013 10:35:00) 97 % (01/20/2013 10:30:00) 98 % (01/20/2013 10:25:00) Systolic Blood Pressure [110-120 mmHg] 145 mmHg *HI* (01/20/2013 10:35:00) 140 mmHg *HI* (01/20/2013 10:30:00) 142 mmHg *HI* (01/20/2013 10:25:00) Diastolic Blood Pressure [65-85 mmHg] 69 mmHg (01/20/2013 10:35:00) 88 mmHg *HI* (01/20/2013 10:30:00) 85 mmHg (01/20/2013 10:25:00) Mean Arterial Pressure, Cuff 94.3 mmHg (01/20/2013 10:35:00) 105.3 mmHg (01/20/2013 10:30:00) 104 mmHg (01/20/2013 10:25:00) Height 175 cm (01/20/2013 09:09:00) 175 cm (01/17/2013 09:13:00) Height/Length Estimated 175 cm (01/17/2013 09:13:00) Height/Length Dosing 175.00 cm (01/20/2013 09:09:00) 175.00 cm (01/17/2013 09:13:00) Height Inches 69 in (01/20/2013 09:09:00) 69 in (01/17/2013 09:13:00) Weight 83.3 kg (01/20/2013 09:09:00) 83.3 kg (01/17/2013 09:13:00) Weight Dosing 83.300 kg (01/20/2013 09:09:00) 83.300 kg (01/17/2013 09:13:00) Weight Pounds 183 lb (01/20/2013 09:09:00) 183 lb (01/17/2013 09:13:00) Body Mass Index 27.20 kg/m2 (01/20/2013 09:09:00) 27.20 kg/m2 (01/17/2013 09:13:00) Results LABORATORY Most recent to oldest [Reference Range]: 1 FIO2 21 % (01/20/2013 09:09:00)
--- OUTSIDE RECORDS SUMMARY | 2018-07-04 05:22 | XMS REPORT | Summary of Care ---
Author Author [facility] Address Unknown Phone Unavailable Encounter [facility] [id number] Date(s): 06/05/16 - 06/05/16 [facility] [address] [place], [place] [address] Discharge Diagnosis: Primary osteoarthritis, left shoulder Discharge Disposition: Discharged to Home or Self Care Attending Physician: Ayo Sommer MD Admitting Physician: Ayo Sommer MD Vital Signs 1 2 3 Most recent to oldest [Reference Range]: 36.2 DegC *LOW* (06/05/16 8:40 AM) Temperature Tympanic [36.6-38.1 DegC] 36.4 DegC (06/05/16 6:38 AM) Temperature Temporal Artery [36.3-37.8 DegC] 97.16 (06/05/16 8:40 AM) Temperature Tympanic Fahrenheit 76 bpm (06/05/16 6:38 AM) Peripheral Pulse Rate [55-105 bpm] 86 bpm (06/05/16 9:10 AM) 86 bpm (06/05/16 9:05 AM) 84 bpm (06/05/16 9:00 AM) Heart Rate Monitored [60-100 bpm] 13 (06/05/16 9:10 AM) 12 (06/05/16 9:05 AM) 14 (06/05/16 9:00 AM) Respiratory Rate [12-20] 95 % (06/05/16 9:10 AM) 95 % (06/05/16 9:05 AM) 100 % (06/05/16 9:00 AM) SpO2 [90-100 %] 152/77 mmHg *HI* (06/05/16 9:10 AM) 152/82 mmHg *HI* (06/05/16 9:05 AM) 152/75 mmHg *HI* (06/05/16 9:00 AM) Blood Pressure [110-120/65-85 mmHg] 1 2 3 Most recent to oldest [Reference Range]: 175 cm (06/05/16 6:38 AM) 175 cm (05/29/16 2:06 PM) Height 175 cm (05/29/16 2:06 PM) Height/Length Estimated 175 cm (06/05/16 6:38 AM) 175 cm (05/29/16 2:06 PM) Height/Length Dosing 69 in (06/05/16 6:38 AM) 69 in (05/29/16 2:06 PM) Height Inches 78 kg (06/05/16 6:38 AM) 78 kg (05/29/16 2:06 PM) Weight 78 kg (06/05/16 6:38 AM) 78 kg (05/29/16 2:06 PM) Weight Dosing 172 lb (06/05/16 6:38 AM) 172 lb (05/29/16 2:06 PM) Weight Pounds 25.47 kg/m2 (06/05/16 6:38 AM) 25.47 kg/m2 (05/29/16 2:06 PM) Body Mass Index Problem List Condition Effective Dates Status Health Status Informant Chronic Active pain(Confirmed) GERD Active [Gastroesophageal reflux disease](Confirmed) Insomnia(Confirmed) Active Osteoarthritis(Confi Active rmed) SEIZURES(Confirmed) Active Allergies, Adverse Reactions, Alerts No Known Allergies Medications acetaminophen IVPB 1,000 mg, Soln-IV, IV Piggyback, Once, infuse over 15 minutes, first dose 9:00:00 CDT, stop date 06/05/16 9:00:00 CDT Notes: Max 4gm acetaminophen in 24 hours Start Date: 06/05/16 Stop Date: 06/05/16 Status: Ordered ceFAZolin 2 gm, Soln-IV, IV Piggyback, Once, infuse over 30 minutes, first dose 06/05/16 7 :00:00 CDT, stop date 06/05/16 7:00:00 CDT, Prophylaxis Start Date: 06/05/16 Stop Date: 06/05/16 Status: Completed ceFAZolin 2 gm, Soln-IV, IV, Once, first dose 06/05/16 7:39:00 CDT, stop date 06/05/16 7:3 9:00 CDT Start Date: 06/05/16 Stop Date: 06/05/16 Status: Completed Demerol HCl 12.5 mg=0.5 mL, Injection, IV Push, q5min PRN for shivers, order duration: 4 dos es, first dose 06/05/16 8:25:00 CDT, stop date Limited # of times Start Date: 06/05/16 Stop Date: 06/05/16 Status: Discontinued fentaNYL 100 mcg=2 mL, Injection, IV, Once, first dose 06/05/16 7:01:00 CDT, stop date 7:01:00 CDT Start Date: 06/05/16 Stop Date: 06/05/16 Status: Completed Flexeril 5 mg oral tablet 5 mg=1 tabs, Oral, TID, X 10 days, # 30 tabs, 0 Refill(s) Start Date: 03/11/15 Stop Date: 03/21/15 Status: Completed Keppra 500 mg oral tablet 500 mg=1 tabs, Oral, BID, 0 Refill(s) Start Date: 11/05/12 Stop Date: 11/19/12 Status: Ordered ketorolac 30 mg=1 mL, Injection, IV Push, Once PRN for pain mild-moderate (1-6), first dos e 06/05/16 8:25:00 CDT Notes: "Restricted: No more than 5 days of therapy from any route of administra tion." Start Date: 06/05/16 Stop Date: 06/05/16 Status: Discontinued labetalol 5 mg=1 mL, Injection, IV Push, q5min PRN for hypertension, order duration: 4 dos es, first dose 06/05/16 8:25:00 CDT, stop date Limited # of times Start Date: 06/05/16 Stop Date: 06/05/16 Status: Discontinued lidocaine 1% injectable solution 0.5 mL, Injection, Subcutaneous, Once, first dose 06/05/16 7:00:00 CDT, stop sonya e 06/05/16 7:00:00 CDT Start Date: 06/05/16 Stop Date: 06/05/16 Status: Completed LR 1,000 mL 1,000 mL, IV, 100 mL/hr, start date 06/05/16 6:18:00 CDT, For Adults Start Date: 06/05/16 Stop Date: 06/05/16 Status: Discontinued Lunesta 3 mg oral tablet 3 mg=1 tabs, Oral, qHS, PRN for insomnia, 0 Refill(s) Start Date: 11/05/12 Stop Date: 11/19/12 Status: Ordered midazolam 4 mg=4 mL, Injection, IV, Once, first dose 06/05/16 7:02:00 CDT, stop date 06/05 7:02:00 CDT Start Date: 06/05/16 Stop Date: 06/05/16 Status: Completed Misc Medication 500 mL, Soln-IV, IV, Once, first dose 06/05/16 8:35:00 CDT, stop date 06/05/16 8 :35:00 CDT Start Date: 06/05/16 Stop Date: 06/05/16 Status: Completed morphine 1 mg=0.1 mL, Injection, IV Push, q5min PRN for Pain Moderate (4-6), order durati on: 5 doses, first dose 06/05/16 8:25:00 CDT, stop date Limited # of times Start Date: 06/05/16 Stop Date: 06/05/16 Status: Discontinued morphine 2 mg=0.2 mL, Injection, IV Push, q5min PRN for pain severe (7-10), order duratio n: 5 doses, first dose 06/05/16 8:25:00 CDT, stop date Limited # of times Start Date: 06/05/16 Stop Date: 06/05/16 Status: Discontinued [place] 7.5 mg-325 mg oral tablet 1 tabs, Oral, q6hr, 0 Refill(s) Start Date: 11/05/12 Stop Date: 11/19/12 Status: Ordered omeprazole 40 mg oral delayed release capsule 40 mg=1 caps, Oral, Daily, 0 Refill(s) Start Date: 11/05/12 Stop Date: 11/19/12 Status: Ordered ondansetron 4 mg=2 mL, Injection, IV Push, q30min PRN for nausea/vomiting, order duration: 2 doses, first dose 06/05/16 8:25:00 CDT, stop date Limited # of times Start Date: 06/05/16 Stop Date: 06/05/16 Status: Discontinued propofol 200 mg=20 mL, Emulsion, IV, Once, first dose 06/05/16 7:51:00 CDT, stop date 05/19 7:51:00 CDT Start Date: 06/05/16 Stop Date: 06/05/16 Status: Completed ropivacaine 100 mg=20 mL, Injection, IV, Once, first dose 06/05/16 7:03:00 CDT, stop date 7:03:00 CDT Start Date: 06/05/16 Stop Date: 06/05/16 Status: Completed succinylcholine 10 mg=0.5 mL, Injection, IV, Once, first dose 06/05/16 7:51:00 CDT, stop date 7:51:00 CDT Start Date: 06/05/16 Stop Date: 06/05/16 Status: Completed Tylenol with Codeine #4 oral tablet 1 tabs, Oral, q4hr, # 50 tabs, 0 Refill(s) Start Date: 03/11/15 Stop Date: 03/25/15 Status: Completed Xarelto 10 mg oral tablet 10 mg=1 tabs, Oral, Daily, # 21 tabs, 0 Refill(s) Start Date: 03/11/15 Stop Date: 05/29/16 Status: Discontinued Results LABORATORY Most recent to 1 oldest [Reference Range]: FIO2 21 % (06/05/16 6:38 AM) Immunizations No data available for this section Procedures Procedure Date Related Diagnosis Body Site left knee replacement Social History No data available for this section Assessment and Plan No data available for this section
--- OUTSIDE RECORDS SUMMARY | 2018-07-04 05:22 | XMS REPORT | CCD ---
Author Author Auto Generated Organization [facility] Address Unknown Phone Unavailable Care Team Providers Care Clinical Trial Leader Name Role Phone Fox Erickson MD [phone] Allergies, Adverse Reactions, Alerts Substance Reaction Status No Known Allergies Active Problem List Condition Effective Dates Status Chronic pain Active GERD [Gastroesophageal reflux disease] Active SEIZURES Active Medications Medication Instructions Start Date End Date Status Patient's Own Home 1 EA, Each, N/A, As Indicated PRN 03/08/2015 03/11/2015 Discontinued Med BIN for other (see comment), first dose 03/08/15 12:57:00 NUTRITION SPECIALIST, Patient's Own MedsPatient's Own Home Med Bin Access*This is a communcation order to allow accessto the patients home med bin* Tylenol with Codeine 1 tabs, Oral, q4hr, # 50 tabs, 0 03/11/2015 03/25/2015 Ordered #4 oral tablet Refill(s) ceFAZolin 2 gm, Soln-IV, IV Piggyback, Once, 03/08/2015 03/08/2015 Completed infuse over 30 minutes, first dose 03/08/15 9:00:00 NUTRITION SPECIALIST, stop date 03/08/15 9:00:00 NUTRITION SPECIALIST, Prophylaxis vancomycin Increased MRSA rate 03/08/2015 03/08/2015 Completed (facility/procedure), 1 gm, Soln-IV, IV Piggyback, Once, infuse over 60 minutes, first dose 03/08/15 9:00:00 NUTRITION SPECIALIST, stop date 03/08/15 9:00:00 NUTRITION SPECIALIST ondansetron 4 mg=2 mL, Injection, IV, Once, 03/08/2015 03/08/2015 Completed first dose 03/08/15 10:29:00 NUTRITION SPECIALIST, stop date 03/08/15 10:29:00 NUTRITION SPECIALIST Misc Medication 1,100 mL, Soln-IV, IV, Once, first 03/08/2015 03/08/2015 Completed dose 03/08/15 11:11:00 NUTRITION SPECIALIST, stop date 03/08/15 11:11:00 NUTRITION SPECIALIST ketorolac 30 mg=1 mL, Injection, IV, Once, 03/08/2015 03/08/2015 Completed first dose 03/08/15 10:29:00 NUTRITION SPECIALIST, stop date 03/08/15 10:29:00 NUTRITION SPECIALIST neostigmine 4 mg=4 mL, Injection, IV, Once, 03/08/2015 03/08/2015 Completed first dose 03/08/15 10:49:00 NUTRITION SPECIALIST, stop date 03/08/15 10:49:00 NUTRITION SPECIALIST glycopyrrolate 0.6 mg=3 mL, Injection, IV, Once, 03/08/2015 03/08/2015 Completed first dose 03/08/15 10:49:00 NUTRITION SPECIALIST, stop date 03/08/15 10:49:00 NUTRITION SPECIALIST Misc Medication 1,000 mL, Soln-IV, IV, Once, first 03/08/2015 03/08/2015 Completed dose 03/08/15 10:41:00 NUTRITION SPECIALIST, stop date 03/08/15 10:41:00 NUTRITION SPECIALIST dexamethasone 4 mg=2 mL, Injection, Nerve Block, 03/08/2015 03/08/2015 Completed Once, first dose 03/08/15 8:20:00 NUTRITION SPECIALIST, stop date 03/08/15 8:20:00 NUTRITION SPECIALIST ePHEDrine 10 mg=0.2 mL, Injection, IV, Once, 03/08/2015 03/08/2015 Completed first dose 03/08/15 9:25:00 NUTRITION SPECIALIST, stop date 03/08/15 9:25:00 NUTRITION SPECIALIST ePHEDrine 10 mg=0.2 mL, Injection, IV, Once, 03/08/2015 03/08/2015 Completed first dose 03/08/15 9:05:00 NUTRITION SPECIALIST, stop date 03/08/15 9:05:00 NUTRITION SPECIALIST Patient's Own Home 1 EA, Each, N/A, As Indicated PRN 03/08/2015 03/11/2015 Discontinued Med BIN for other (see comment), first dose 03/08/15 12:52:00 NUTRITION SPECIALIST, Patient's Own MedsPatient's Own Home Med Bin Access*This is a communcation order to allow accessto the patients home med bin* Remus 10 mg-325 mg 2 tabs, Tab, Oral, q4hr PRN for 03/09/2015 03/11/2015 Discontinued oral tablet pain severe (7-10), first dose 03/09/15 15:38:00 CSTMax 4gm acetaminophen in 24 hours HYDROmorphone 0.5 mg=0.5 mL, Injection, IV Push, 03/08/2015 03/08/2015 Completed q5min PRN for pain mild-moderate (1-6), order duration: 4 doses, first dose 03/08/15 11:37:00 NUTRITION SPECIALIST, stop date 03/08/15 13:00:00 NUTRITION SPECIALIST omeprazole 40 mg=1 tabs, Cap-EC, Oral, BID, 03/08/2015 03/11/2015 Discontinued first dose 03/08/15 16:00:00 NUTRITION SPECIALIST, Patient's Own Meds levETIRAcetam 500 mg=1 tabs, Tab, Oral, BID, 03/08/2015 03/11/2015 Discontinued first dose 03/08/15 21:00:00 NUTRITION SPECIALIST, Patient's Own Meds eszopiclone 3 mg=1 EA, Tab, Oral, qHS PRN for 03/08/2015 03/11/2015 Discontinued insomnia, first dose 03/08/15 14:06:00 NUTRITION SPECIALIST, Patient's Own Meds LR 1,000 mL 1,000 mL, IV, 100 mL/hr, start date 03/08/2015 03/08/2015 Discontinued 03/08/15 8:38:00 NUTRITION SPECIALIST, For Adults lidocaine 1% 0.5 mL, Injection, Subcutaneous, 03/08/2015 03/08/2015 Completed injectable solution Once, first dose 03/08/15 9:00:00 NUTRITION SPECIALIST, stop date 03/08/15 9:00:00 NUTRITION SPECIALIST promethazine IVPB 12.5 mg, IV Piggyback, q4hr PRN for 03/08/2015 03/11/2015 Discontinued nausea/vomiting, infuse over 15 minutes, first dose 03/08/15 12:51:00 NUTRITION SPECIALIST Remus 10 mg-325 mg 1 tabs, Tab, Oral, q4hr PRN for 03/08/2015 03/11/2015 Discontinued oral tablet Pain Moderate (4-6), first dose 03/08/15 12:51:00 CSTMax 4gm acetaminophen in 24 hours Remus 7.5 mg-325 mg 1 tabs, Tab, Oral, q4hr PRN for 03/08/2015 03/11/2015 Discontinued oral tablet Pain Mild (1-3), first dose 03/08/15 12:51:00 CSTMax 4gm acetaminophen in 24 hours ketorolac 10 mg=1 tabs, Tab, Oral, q6hr PRN 03/10/2015 03/11/2015 Discontinued for pain, first dose 03/10/15 6:00:00 NUTRITION SPECIALIST, stop date 03/15/15 0:00:00 NUTRITION SPECIALIST"Restricted: No more than 5 days of therapy from any route of administration." Mylanta 20 mL, Susp, Oral, QID PRN for 03/08/2015 03/11/2015 Discontinued indigestion, first dose 03/08/15 12:51:00 NUTRITION SPECIALIST Xarelto 10 mg=1 tabs, Tab, Oral, Daily, 03/09/2015 03/11/2015 Discontinued first dose 03/09/15 9:00:00 NUTRITION SPECIALIST acetaminophen 650 mg=2 supp, Supp, NM, q6hr PRN 03/08/2015 03/11/2015 Discontinued for fever, first dose 03/08/15 12:51:00 CSTMax 4gm acetaminophen in 24 hours acetaminophen 1,000 mg=2 tabs, Tab, Oral, q6hr 03/08/2015 03/11/2015 Discontinued PRN for fever, first dose 03/08/15 12:51:00 CSTMax 4gm acetaminophen in 24 hours Saline Lock Flush 10 mL, Soln, IV Push, As Indicated, 03/08/2015 03/11/2015 Discontinued first dose 03/08/15 12:51:00 NUTRITION SPECIALIST LR 1,000 mL 1,000 mL, IV, 60 mL/hr, start date 03/08/2015 03/11/2015 Discontinued 03/08/15 12:51:00 NUTRITION SPECIALIST, Change rate to 45ml/hr if using CONSTRUCTION SITE MANAGER or convert to Saline Lock vancomycin Acute inpatient hospital stay w/in 03/08/2015 03/09/2015 Completed year, 1 gm, IV Piggyback, q12hr, infuse over 60 minutes, first dose 03/08/15 20:00:00 NUTRITION SPECIALIST, stop date 03/09/15 11:10:00 NUTRITION SPECIALIST Benadryl 25 mg=0.5 mL, Injection, IM, q6hr 03/08/2015 03/11/2015 Discontinued PRN for itching, first dose 03/08/15 12:51:00 NUTRITION SPECIALIST ferrous sulfate 325 mg=1 tabs, Tab-DR, Oral, BIDPC, 03/08/2015 03/11/2015 Discontinued first dose 03/08/15 18:00:00 NUTRITION SPECIALIST ceFAZolin 1 gm, IV Piggyback, q8hr, infuse 03/08/2015 03/09/2015 Completed over 30 minutes, first dose 03/08/15 17:00:00 NUTRITION SPECIALIST, stop date 03/09/15 11:10:00 NUTRITION SPECIALIST, Prophylaxis temazepam 15 mg=1 caps, Cap, Oral, Once a day 03/08/2015 03/11/2015 Discontinued (at bedtime) PRN for sleep, first dose 03/08/15 12:51:00 NUTRITION SPECIALIST multivitamin with 1 tabs, Tab, Oral, Daily, first 03/09/2015 03/11/2015 Discontinued minerals dose 03/09/15 9:00:00 NUTRITION SPECIALIST Vitamin C 500 mg=1 tabs, Tab, Oral, Daily, 03/09/2015 03/11/2015 Discontinued first dose 03/09/15 9:00:00 NUTRITION SPECIALIST Zofran ODT 4 mg=1 tabs, Tab-Dis, Oral, q6hr 03/08/2015 03/11/2015 Discontinued PRN for nausea/vomiting, first dose 03/08/15 12:51:00 NUTRITION SPECIALIST bisacodyl 10 mg=1 supp, Supp, NM, Daily PRN 03/08/2015 03/11/2015 Discontinued for constipation, first dose 03/08/15 12:51:00 NUTRITION SPECIALIST Fleet Enema 133 mL, Enema, NM, Once PRN for 03/08/2015 03/11/2015 Discontinued constipation, first dose 03/08/15 12:51:00 NUTRITION SPECIALIST Milk of Magnesia 30 mL, Susp, Oral, qHS PRN for 03/08/2015 03/11/2015 Discontinued constipation, first dose 03/08/15 12:51:00 NUTRITION SPECIALIST communication to Pharmacist to D/C medications upon 03/08/2015 03/09/2015 Completed pharmacist transfer, Each, N/A, Once, first dose 03/08/15 13:00:00 NUTRITION SPECIALIST, stop date 03/08/15 13:00:00 NUTRITION SPECIALIST naloxone 0.4 mg=1 mL, Injection, IV Push, 03/08/2015 03/11/2015 Discontinued q2min PRN for other (see comment), first dose 03/08/15 12:51:00 NUTRITION SPECIALIST Morphine CONSTRUCTION SITE MANAGER 2mg/ ml 30 mL, CONSTRUCTION SITE MANAGER Dose (mg): 1, Lockout 03/08/2015 03/10/2015 Discontinued 60 mg Interval (min): 6, Limit Amount (mg): 5, Limit Period (hr): 1, Continuous Rate (mg/hr): 0, Loading Dose (mg): 2, RN Adm Bolus (mg): 1, Bolus Dose Lockout (hr): 1, IV, CONSTRUCTION SITE MANAGER, start date 03/08/15 12:51:00 NUTRITION SPECIALIST Benadryl 25 mg=0.5 mL, Injection, IM, q6hr 03/08/2015 03/11/2015 Discontinued PRN for itching, first dose 03/08/15 12:51:00 NUTRITION SPECIALIST Demerol HCl 12.5 mg=0.5 mL, Injection, IV Push, 03/08/2015 03/08/2015 Completed q5min PRN for Pain Mild (1-3), order duration: 4 doses, first dose 03/08/15 10:53:00 NUTRITION SPECIALIST, stop date Limited # of times morphine 2 mg, IV Push, q5min PRN for pain 03/08/2015 03/08/2015 Completed severe (7-10), order duration: 5 doses, first dose 03/08/15 10:53:00 NUTRITION SPECIALIST, stop date Limited # of times morphine 1 mg=0.1 mL, Injection, IV Push, 03/08/2015 03/08/2015 Completed q5min PRN for Pain Moderate (4-6), order duration: 5 doses, first dose 03/08/15 10:53:00 NUTRITION SPECIALIST, stop date 03/08/15 13:00:00 NUTRITION SPECIALIST ondansetron 4 mg=2 mL, Injection, IV Push, 03/08/2015 03/08/2015 Completed q30min PRN for nausea/vomiting, order duration: 2 doses, first dose 03/08/15 10:53:00 NUTRITION SPECIALIST, stop date 03/08/15 13:00:00 NUTRITION SPECIALIST promethazine IVPB 12.5 mg, IV Piggyback, Once PRN for 03/08/2015 03/08/2015 Discontinued nausea/vomiting, infuse over 15 minutes, first dose 03/08/15 10:53:00 NUTRITION SPECIALIST omeprazole 40 mg 40 mg=1 caps, Oral, Daily, 0 11/05/2012 11/19/2012 Ordered oral delayed release Refill(s) capsule ketorolac 30 mg=1 mL, Injection, IV Push, 03/09/2015 03/11/2015 Discontinued q6hr PRN for pain, first dose 03/09/15 1:43:00 NUTRITION SPECIALIST"Restricted: No more than 5 days of therapy from any route of administration." Remus 7.5 mg-325 mg 1 tabs, Oral, q6hr, 0 Refill(s) 11/05/2012 11/19/2012 Ordered oral tablet Keppra 500 mg oral 500 mg=1 tabs, Oral, BID, 0 11/05/2012 11/19/2012 Ordered tablet Refill(s) Lunesta 3 mg oral 3 mg=1 tabs, Oral, qHS, PRN for 11/05/2012 11/19/2012 Ordered tablet insomnia, 0 Refill(s) Xarelto 10 mg oral 10 mg=1 tabs, Oral, Daily, # 21 03/11/2015 03/25/2015 Ordered tablet tabs, 0 Refill(s) Flexeril 5 mg oral 5 mg=1 tabs, Oral, TID, X 10 days, 03/11/2015 03/21/2015 Ordered tablet # 30 tabs, 0 Refill(s) ropivacaine 150 mg=30 mL, Injection, IV, Once, 03/08/2015 03/08/2015 Completed first dose 03/08/15 8:29:00 NUTRITION SPECIALIST, stop date 03/08/15 8:29:00 NUTRITION SPECIALIST midazolam 4 mg=4 mL, Injection, IV, Once, 03/08/2015 03/08/2015 Completed first dose 03/08/15 8:18:00 NUTRITION SPECIALIST, stop date 03/08/15 8:18:00 NUTRITION SPECIALIST lidocaine 5 mL, Injection, IV, Once, first 03/08/2015 03/08/2015 Completed dose 03/08/15 8:57:00 NUTRITION SPECIALIST, stop date 03/08/15 8:57:00 NUTRITION SPECIALIST propofol 200 mg=20 mL, Emulsion, IV, Once, 03/08/2015 03/08/2015 Completed first dose 03/08/15 8:57:00 NUTRITION SPECIALIST, stop date 03/08/15 8:57:00 NUTRITION SPECIALIST fentaNYL 100 mcg=2 mL, Injection, IV, Once, 03/08/2015 03/08/2015 Completed first dose 03/08/15 8:57:00 NUTRITION SPECIALIST, stop date 03/08/15 8:57:00 NUTRITION SPECIALIST fentaNYL 100 mcg=2 mL, Injection, IV, Once, 03/08/2015 03/08/2015 Completed first dose 03/08/15 8:18:00 NUTRITION SPECIALIST, stop date 03/08/15 8:18:00 NUTRITION SPECIALIST ceFAZolin 2 gm, Soln-IV, IV, Once, first dose 03/08/2015 03/08/2015 Completed 03/08/15 9:06:00 NUTRITION SPECIALIST, stop date 03/08/15 9:06:00 NUTRITION SPECIALIST ropivacaine 150 mg=30 mL, Injection, IV, Once, 03/08/2015 03/08/2015 Completed first dose 03/08/15 8:20:00 NUTRITION SPECIALIST, stop date 03/08/15 8:20:00 NUTRITION SPECIALIST rocuronium 40 mg=4 mL, Injection, IV, Once, 03/08/2015 03/08/2015 Completed first dose 03/08/15 8:57:00 NUTRITION SPECIALIST, stop date 03/08/15 8:57:00 NUTRITION SPECIALIST acetaminophen 1,000 mg, Soln-IV, IV, Once, first 03/08/2015 03/08/2015 Completed dose 03/08/15 9:19:00 NUTRITION SPECIALIST, stop date 03/08/15 9:19:00 NUTRITION SPECIALIST Vital Signs Most recent to oldest [Reference Range]: 1 2 3 Temperature Oral [35.8-37.3 DegC] 36.9 DegC (03/11/2015 08:00:00) 36.7 DegC (03/11/2015 06:00:00) 37.4 DegC *HI* (03/10/2015 19:00:00) Temperature Tympanic [36.6-38.1 DegC] 36.9 DegC (03/08/2015 11:05:00) Temperature Temporal Artery [36.3-37.8 DegC] 36.6 DegC (03/08/2015 07:53:00) Temperature Farenheit 98.42 DegF (03/11/2015 08:00:00) 98.06 DegF (03/11/2015 06:00:00) 99.32 DegF (03/10/2015 19:00:00) Temperature Tympanic Fahrenheit 98.42 (03/08/2015 11:05:00) Peripheral Pulse Rate [55-105 bpm] 89 bpm (03/09/2015 16:00:00) 94 bpm (03/09/2015 07:00:00) 77 bpm (03/08/2015 20:00:00) Heart Rate Monitored [60-100 bpm] 97 bpm (03/11/2015 08:00:00) 92 bpm (03/11/2015 06:00:00) 100 bpm (03/10/2015 19:00:00) Respiratory Rate [12-20] 16 (03/11/2015 08:00:00) 18 (03/11/2015 06:00:00) 16 (03/10/2015 19:00:00) SpO2 [90-100 %] 98 % (03/11/2015 08:00:00) 99 % (03/11/2015 06:00:00) 93 % (03/10/2015 19:00:00) Blood Pressure [110-120/65-85 mmHg] <content ID='[id number]'>141</content>/<content ID='[id number]'>89</content> mmHg *HI* (03/11/2015 08:00:00) <content ID='[id number]'>145</content>/<content ID='[id number]'>84</content> mmHg *HI* (03/11/2015 06:00:00) <content ID='[id number]'>163</content>/<content ID='[id number]'>94</content> mmHg *HI* (03/10/2015 19:00:00) Mean Arterial Pressure, Cuff 106.3 mmHg (03/11/2015 08:00:00) 104.3 mmHg (03/11/2015 06:00:00) 117 mmHg (03/10/2015 19:00:00) Most recent to oldest [Reference Range]: 1 2 3 Height 175 cm (03/08/2015 07:53:00) 175 cm (02/24/2015 09:07:00) Height/Length Dosing 175 cm (03/08/2015 07:53:00) 175 cm (02/24/2015 09:07:00) Height Inches 69 in (03/08/2015 07:53:00) 69 in (02/24/2015 09:07:00) Weight 80.4 kg (03/08/2015 07:53:00) 80.4 kg (02/24/2015 09:07:00) Weight Dosing 80.4 kg (03/08/2015 07:53:00) 80.4 kg (02/24/2015 09:07:00) Weight Pounds 177 lb (03/08/2015 07:53:00) 177 lb (02/24/2015 09:07:00) Body Mass Index 26 kg/m2 (03/08/2015 07:53:00) 26.25 kg/m2 (02/24/2015 09:07:00) Results LABORATORY Most recent to oldest [Reference Range]: 1 FIO2 21 % (03/08/2015 07:53:00) Procedures Procedures Date Related Diagnosis Introduction of Regional Anesthetic into Peripheral Nerves 03/08/2015 00:00:00 and Plexi, Percutaneous Approach Replacement of Left Knee Joint with Synthetic Substitute, 03/08/2015 00:00:00 Cemented, Open Approach
[2018-07-04 07:15] VITALS: BP 116/76
== END | disposition home or self-care (01) ==
LOC: OR 05:08
PROVIDERS: ATTEND Physical Medicine & Rehabilitation Pain Medicine
DX: M53.3 Sacrococcygeal disorders, not elsewhere classified (principal); M46.1 Sacroiliitis, not elsewhere classified; M54.16 Radiculopathy, lumbar region; K44.9 Diaphragmatic hernia without obstruction or gangrene; G40.802 Other epilepsy, not intractable, without status epilepticus; Z96.651 Presence of right artificial knee joint; Z01.810 Encounter for preprocedural cardiovascular examination
CPT/HCPCS: 64999; 77003; 93005; J2001; J2250; J2704; J3301; Q9967

== ENCOUNTER → 2018-11-07 | Day surgery (SDC) | payer MEDICARE ==
[~2018-11-07] MED LIST changes: +LIDOCAINE HCL 2% LOCAL INJ 5 ML SDV VIAL INJ ONE
--- OUTSIDE RECORDS SUMMARY | 2018-11-07 05:10 | XMS REPORT | Clinical Summary ---
Author Author [employer] [facility] [facility] Address Unknown Phone Unavailable Care Team Providers Care Asbestos Pipe Supervisor Name Role Phone David Tracey MD PCP [...] Use Types Packs/Day Years Used Never Smoker Drinks/Week oz/Week Comments Alcohol Use social drinker once a month Yes Sex Assigned at Date Recorded Not on file Industry Job Start Date Occupation Not on file Not on file Not on file Travel End Travel History Travel Start No recent travel history available. Last Filed Vital Signs Not on file Plan of Treatment Health Maintenance Due Date Last Done Comments COLONOSCOPY SCREENING 2008 SHINGLES VACCINES (#1) 2008 INFLUENZA VACCINE 10/03/2018 Results Not on fileafter 11/06/2017 Insurance Type Payer Benefit Subscriber ID Effective Phone Address Plan / Dates Group PPO BCBS BCBS OUT xxxxxxxxxxxx 2014-P OF STATE resent Advance Directives For more information, please contact: [phone] Patient Safety Net Maker Explanation Type Date Recorded Advance Directives, Living Will and Medical Power of Solid Waste Engineer
--- OUTSIDE RECORDS SUMMARY | 2018-11-07 05:11 | XMS REPORT | Continuity of Care Document ---
Author Author Zweemie Address Unknown Phone Unavailable Care Team Providers Care Welt Treater Name Role Phone Parachute Information [employer] Unavailable Unavailable Problems Problem Status Onset Date Classification Date Reported Comments Source Discharge Diagnosis: Primary osteoarthritis, left shoulder 06/05/2016 06/07/2016 [facility] GERD [Gastroesophageal reflux disease] Active Problem 01/22/2013 [facility] SEIZURES Active Problem 03/13/2015 [facility] Chronic pain (finding) Active Problem 06/07/2016 [facility] Gastroesophageal reflux disease (disorder) Active Problem 06/07/2016 [facility] Insomnia (disorder) Active Problem 06/07/2016 [facility] Osteoarthritis (disorder) Active Problem 06/07/2016 [facility] SEIZURES(Confirmed) Active Problem 06/07/2016 [facility] Medications Medication Details Route Status Patient Instructions [...] 10 days, # 30 tabs, 0 Refill(s) [id number] 03/11/2015 [facility] Xarelto 10 mg oral tablet 10 mg=1 tabs, Oral, Daily, # 21 tabs, 0 Refill(s) Active Dre EVANS 03/11/2015 [facility] Flexeril 5 mg oral tablet 5 mg=1 tabs, Oral, TID, X 10 days, # 30 tabs, 0 Refill(s) Active Dre EVANS 03/11/2015 [facility] Acetaminophen 300 MG / Codeine Phosphate 60 MG Oral Tablet [Tylenol with Codeine #4] 1 tabs, Oral, q4hr, # 50 tabs, 0 Refill(s) [id number] 03/11/2015 [facility] Tylenol with Codeine #4 oral tablet 1 tabs, Oral, q4hr, # 50 tabs, 0 Refill(s) Active Dre EVANS 03/11/2015 [facility] ketorolac 10 mg=1 tabs, Tab, Oral, q6hr PRN for pain, first dose 03/10/15 6:00:00 PLANT PATHOLOGIST, stop date 03/15/15 0:00:00 PLANT PATHOLOGIST"Restricted: No more than 5 days of therapy from any route of administration." No Longer Active Dre EVANS 03/10/2015 [facility] Petrolia 10 mg-325 mg oral tablet 2 tabs, Tab, Oral, q4hr PRN for pain severe (7-10), first dose 03/09/15 15:38:00 CSTMax 4gm acetaminophen in 24 hours No Longer Active Dre EVANS 03/09/2015 [facility] Xarelto 10 mg=1 tabs, Tab, Oral, Daily, first dose 03/09/15 9:00:00 PLANT PATHOLOGIST No Longer Active Dre EVANS 03/09/2015 [facility] multivitamin with minerals 1 tabs, Tab, Oral, Daily, first dose 03/09/15 9:00:00 PLANT PATHOLOGIST No Longer Active Dre EVANS 03/09/2015 [facility] Vitamin C 500 mg=1 tabs, Tab, Oral, Daily, first dose 03/09/15 9:00:00 PLANT PATHOLOGIST No Longer Active Dre EVANS 03/09/2015 [facility] ketorolac 30 mg=1 mL, Injection, IV Push, q6hr PRN for pain, first dose 03/09/15 1:43:00 PLANT PATHOLOGIST"Restricted: No more than 5 days of therapy from any route of administration." No Longer Active [place] 03/09/2015 [facility] levETIRAcetam 500 mg=1 tabs, Tab, Oral, BID, first dose 03/08/15 21:00:00 PLANT PATHOLOGIST, Patient's Own Meds No Longer Active Dre EVANS 03/09/2015 [facility] vancomycin Acute inpatient hospital stay w/in year, 1 gm, IV Piggyback, q12hr, infuse over 60 minutes, first dose 03/08/15 20:00:00 PLANT PATHOLOGIST, stop date 03/09/15 11:10:00 PLANT PATHOLOGIST [id number] Dre EVANS 03/09/2015 [facility] ferrous sulfate 325 mg=1 tabs, Tab-DR, Oral, BIDPC, first dose 03/08/15 18:00:00 PLANT PATHOLOGIST No Longer Active Dre EVANS 03/09/2015 [facility] ceFAZolin 1 gm, IV Piggyback, q8hr, infuse over 30 minutes, first dose 03/08/15 17:00:00 PLANT PATHOLOGIST, stop date 03/09/15 11:10:00 PLANT PATHOLOGIST, Prophylaxis [id number] Dre EVANS 03/08/2015 [facility] omeprazole 40 mg=1 tabs, Cap-EC, Oral, BID, first dose 03/08/15 16:00:00 PLANT PATHOLOGIST, Patient's Own Meds No Longer Active Dre EVANS 03/08/2015 [facility] eszopiclone 3 mg=1 EA, Tab, Oral, qHS PRN for insomnia, first dose 03/08/15 14:06:00 PLANT PATHOLOGIST, Patient's Own Meds No Longer Active Dre EVANS 03/08/2015 [facility] communication to pharmacist Pharmacist to D/C medications upon transfer, Each, N/A, Once, first dose 03/08/15 13:00:00 PLANT PATHOLOGIST, stop date 03/08/15 13:00:00 PLANT PATHOLOGIST [id number] Dre EVANS 03/08/2015 [facility] Patient's Own Home Med BIN 1 EA, Each, N/A, As Indicated PRN for other (see comment), first dose 03/08/15 12:57:00 PLANT PATHOLOGIST, Patient's Own MedsPatient's Own Home Med Bin Access *This is a communcation order to allow access to the patients home med bin* No Longer Active Dre EVANS 03/08/2015 [facility] Patient's Own Home Med BIN 1 EA, Each, N/A, As Indicated PRN for other (see comment), first dose 03/08/15 12:52:00 PLANT PATHOLOGIST, Patient's Own MedsPatient's Own Home Med Bin Access *This is a communcation order to allow access to the patients home med bin* No Longer Active Dre EVANS 03/08/2015 [facility] promethazine IVPB 12.5 mg, IV Piggyback, q4hr PRN for nausea/vomiting, infuse over 15 minutes, first dose 03/08/15 12:51:00 PLANT PATHOLOGIST No Longer Active Dre EVANS 03/08/2015 [facility] Petrolia 10 mg-325 mg oral tablet 1 tabs, Tab, Oral, q4hr PRN for Pain Moderate (4-6), first dose 03/08/15 12:51:00 CSTMax 4gm acetaminophen in 24 hours No Longer Active Dre EVANS 03/08/2015 [facility] Petrolia 7.5 mg-325 mg oral tablet 1 tabs, Tab, Oral, q4hr PRN for Pain Mild (1-3), first dose 03/08/15 12:51:00 CSTMax 4gm acetaminophen in 24 hours No Longer Active Dre EVANS 03/08/2015 [facility] Mylanta 20 mL, Susp, Oral, QID PRN for indigestion, first dose 03/08/15 12:51:00 PLANT PATHOLOGIST No Longer Active Dre EVANS 03/08/2015 [facility] acetaminophen 650 mg=2 supp, Supp, NH, q6hr PRN for fever, first dose 03/08/15 12:51:00 CSTMax 4gm acetaminophen in 24 hours No Longer Active Dre EVANS 03/08/2015 [facility] Saline Lock Flush 10 mL, Soln, IV Push, As Indicated, first dose 03/08/15 12:51:00 PLANT PATHOLOGIST No Longer Active Dre EVANS 03/08/2015 [facility] LR 1,000 mL 1,000 mL, IV, 60 mL/hr, start date 03/08/15 12:51:00 PLANT PATHOLOGIST, Change rate to 45ml/hr if using PARACHUTE/COMBATANT DIVER OFFICER or convert to Saline Lock No Longer Active Dre EVANS 03/08/2015 [facility] Benadryl 25 mg=0.5 mL, Injection, IM, q6hr PRN for itching, first dose 03/08/15 12:51:00 PLANT PATHOLOGIST No Longer Active Dre EVANS 03/08/2015 [facility] temazepam 15 mg=1 caps, Cap, Oral, Once a day (at bedtime) PRN for sleep, first dose 03/08/15 12:51:00 PLANT PATHOLOGIST No Longer Active Dre EVANS 03/08/2015 [facility] Zofran ODT 4 mg=1 tabs, Tab-Dis, Oral, q6hr PRN for nausea/vomiting, first dose 03/08/15 12:51:00 PLANT PATHOLOGIST No Longer Active Dre EVANS 03/08/2015 [facility] bisacodyl 10 mg=1 supp, Supp, NH, Daily PRN for constipation, first dose 03/08/15 12:51:00 PLANT PATHOLOGIST No Longer Active Dre EVANS 03/08/2015 [facility] Fleet Enema 133 mL, Enema, NH, Once PRN for constipation, first dose 03/08/15 12:51:00 PLANT PATHOLOGIST No Longer Active Dre EVANS 03/08/2015 [facility] Milk of Magnesia 30 mL, Susp, Oral, qHS PRN for constipation, first dose 03/08/15 12:51:00 PLANT PATHOLOGIST No Longer Active Dre EVANS 03/08/2015 [facility] naloxone 0.4 mg=1 mL, Injection, IV Push, q2min PRN for other (see comment), first dose 03/08/15 12:51:00 PLANT PATHOLOGIST No Longer Active Dre EVANS 03/08/2015 [facility] Morphine PARACHUTE/COMBATANT DIVER OFFICER 2mg/ ml 60 mg 30 mL, PARACHUTE/COMBATANT DIVER OFFICER Dose (mg): 1, Lockout Interval (min): 6, Limit Amount (mg): 5, Limit Period (hr): 1, Continuous Rate (mg/hr): 0, Loading Dose (mg): 2, RN Adm Bolus (mg): 1, Bolus Dose Lockout (hr): 1, IV, PARACHUTE/COMBATANT DIVER OFFICER, start date 03/08/15 12:51:00 PLANT PATHOLOGIST No Longer Active Dre EVANS 03/08/2015 [facility] HYDROmorphone 0.5 mg=0.5 mL, Injection, IV Push, q5min PRN for pain mild-moderate (1-6), order duration: 4 doses, first dose 03/08/15 11:37:00 PLANT PATHOLOGIST, stop date 03/08/15 13:00:00 PLANT PATHOLOGIST Inactive [place] 03/08/2015 [facility] Misc Medication 1,100 mL, Soln-IV, IV, Once, first dose 03/08/15 11:11:00 PLANT PATHOLOGIST, stop date 03/08/15 11:11:00 PLANT PATHOLOGIST Inactive Zhou 03/08/2015 [facility] Demerol HCl 12.5 mg=0.5 mL, Injection, IV Push, q5min PRN for Pain Mild (1-3), order duration: 4 doses, first dose 03/08/15 10:53:00 PLANT PATHOLOGIST, stop date Limited # of times Inactive Del Angel 03/08/2015 [facility] morphine 2 mg, IV Push, q5min PRN for pain severe (7-10), order duration: 5 doses, first dose 03/08/15 10:53:00 PLANT PATHOLOGIST, stop date Limited # of times Inactive Del Angel 03/08/2015 [facility] ondansetron 4 mg=2 mL, Injection, IV Push, q30min PRN for nausea/vomiting, order duration: 2 doses, first dose 03/08/15 10:53:00 PLANT PATHOLOGIST, stop date 03/08/15 13:00:00 PLANT PATHOLOGIST Inactive Del Angel 03/08/2015 [facility] promethazine IVPB 12.5 mg, IV Piggyback, Once PRN for nausea/vomiting, infuse over 15 minutes, first dose 03/08/15 10:53:00 PLANT PATHOLOGIST Inactive Del Angel 03/08/2015 [facility] neostigmine 4 mg=4 mL, Injection, IV, Once, first dose 03/08/15 10:49:00 PLANT PATHOLOGIST, stop date 03/08/15 10:49:00 PLANT PATHOLOGIST Inactive Zhou 03/08/2015 [facility] glycopyrrolate 0.6 mg=3 mL, Injection, IV, Once, first dose 03/08/15 10:49:00 PLANT PATHOLOGIST, stop date 03/08/15 10:49:00 PLANT PATHOLOGIST Inactive Zhou 03/08/2015 [facility] Misc Medication 1,000 mL, Soln-IV, IV, Once, first dose 03/08/15 10:41:00 PLANT PATHOLOGIST, stop date 03/08/15 10:41:00 PLANT PATHOLOGIST Inactive Zhou 03/08/2015 [facility] ondansetron 4 mg=2 mL, Injection, IV, Once, first dose 03/08/15 10:29:00 PLANT PATHOLOGIST, stop date 03/08/15 10:29:00 PLANT PATHOLOGIST Inactive Zhou 03/08/2015 [facility] ketorolac 30 mg=1 mL, Injection, IV, Once, first dose 03/08/15 10:29:00 PLANT PATHOLOGIST, stop date 03/08/15 10:29:00 PLANT PATHOLOGIST Inactive Zhou 03/08/2015 [facility] ePHEDrine 10 mg=0.2 mL, Injection, IV, Once, first dose 03/08/15 9:25:00 PLANT PATHOLOGIST, stop date 03/08/15 9:25:00 PLANT PATHOLOGIST Inactive Zhou 03/08/2015 [facility] acetaminophen 1,000 mg, Soln-IV, IV, Once, first dose 03/08/15 9:19:00 PLANT PATHOLOGIST, stop date 03/08/15 9:19:00 PLANT PATHOLOGIST Inactive Zhou 03/08/2015 [facility] ceFAZolin 2 gm, Soln-IV, IV, Once, first dose 03/08/15 9:06:00 PLANT PATHOLOGIST, stop date 03/08/15 9:06:00 PLANT PATHOLOGIST Inactive Zhou 03/08/2015 [facility] ePHEDrine 10 mg=0.2 mL, Injection, IV, Once, first dose 03/08/15 9:05:00 PLANT PATHOLOGIST, stop date 03/08/15 9:05:00 PLANT PATHOLOGIST Inactive Zhou 03/08/2015 [facility] ceFAZolin 2 gm, Soln-IV, IV Piggyback, Once, infuse over 30 minutes, first dose 03/08/15 9:00:00 PLANT PATHOLOGIST, stop date 03/08/15 9:00:00 PLANT PATHOLOGIST, Prophylaxis Inactive Dre EVANS 03/08/2015 [facility] vancomycin Increased MRSA rate (facility/procedure), 1 gm, Soln-IV, IV Piggyback, Once, infuse over 60 minutes, first dose 03/08/15 9:00:00 PLANT PATHOLOGIST, stop date 03/08/15 9:00:00 PLANT PATHOLOGIST Inactive Dre EVANS 03/08/2015 [facility] lidocaine 1% injectable solution 0.5 mL, Injection, Subcutaneous, Once, first dose 03/08/15 9:00:00 PLANT PATHOLOGIST, stop date 03/08/15 9:00:00 PLANT PATHOLOGIST Inactive Bean 03/08/2015 [facility] lidocaine 5 mL, Injection, IV, Once, first dose 03/08/15 8:57:00 PLANT PATHOLOGIST, stop date 03/08/15 8:57:00 PLANT PATHOLOGIST Inactive Zhou 03/08/2015 [facility] propofol 200 mg=20 mL, Emulsion, IV, Once, first dose 03/08/15 8:57:00 PLANT PATHOLOGIST, stop date 03/08/15 8:57:00 PLANT PATHOLOGIST Inactive Zhou 03/08/2015 [facility] fentaNYL 100 mcg=2 mL, Injection, IV, Once, first dose 03/08/15 8:57:00 PLANT PATHOLOGIST, stop date 03/08/15 8:57:00 PLANT PATHOLOGIST Inactive Zhou 03/08/2015 [facility] rocuronium 40 mg=4 mL, Injection, IV, Once, first dose 03/08/15 8:57:00 PLANT PATHOLOGIST, stop date 03/08/15 8:57:00 PLANT PATHOLOGIST Inactive Zhou 03/08/2015 [facility] LR 1,000 mL 1,000 mL, IV, 100 mL/hr, start date 03/08/15 8:38:00 PLANT PATHOLOGIST, For Adults Inactive Del Angel 03/08/2015 [facility] ropivacaine 150 mg=30 mL, Injection, IV, Once, first dose 03/08/15 8:29:00 PLANT PATHOLOGIST, stop date 03/08/15 8:29:00 PLANT PATHOLOGIST Inactive Zhou 03/08/2015 [facility] dexamethasone 4 mg=2 mL, Injection, Nerve Block, Once, first dose 03/08/15 8:20:00 PLANT PATHOLOGIST, stop date 03/08/15 8:20:00 PLANT PATHOLOGIST Inactive Zhou 03/08/2015 [facility] ropivacaine 150 mg=30 mL, Injection, IV, Once, first dose 03/08/15 8:20:00 PLANT PATHOLOGIST, stop date 03/08/15 8:20:00 PLANT PATHOLOGIST Inactive Zhou 03/08/2015 [facility] midazolam 4 mg=4 mL, Injection, IV, Once, first dose 03/08/15 8:18:00 PLANT PATHOLOGIST, stop date 03/08/15 8:18:00 PLANT PATHOLOGIST Inactive Zhou 03/08/2015 [facility] fentaNYL 100 mcg=2 mL, Injection, IV, Once, first dose 03/08/15 8:18:00 PLANT PATHOLOGIST, stop date 03/08/15 8:18:00 PLANT PATHOLOGIST Inactive Zhou 03/08/2015 [facility] promethazine IVPB 12.5 mg, IV Piggyback, Once PRN for nausea/vomiting, infuse over 15 minutes, first dose 01/04/15 8:15:00 PLANT PATHOLOGIST Inactive Lastoc01/04/2015 [facility] morphine 1 mg, IV Push, q5min PRN for Pain Moderate (4- 6), order duration: 5 doses, first dose 01/04/15 8:15:00 PLANT PATHOLOGIST, stop date Limited # of times Inactive [facility] 01/04/2015 [facility] Demerol HCl 12.5 mg=0.5 mL, Injection, IV Push, q5min PRN for Pain Mild (1-3), order duration: 4 doses, first dose 01/04/15 8:15:00 PLANT PATHOLOGIST, stop date Limited # of times Inactive [facility] 01/04/2015 [facility] Lactated Ringers Injection IV, start date 01/04/15 8:12:00 PLANT PATHOLOGIST, stop date 01/04/15 8:12:00 PLANT PATHOLOGIST Inactive [place] 01/04/2015 [facility] Misc Medication 600 mL, Soln-IV, IV, Once, first dose 01/04/15 8:12:00 PLANT PATHOLOGIST, stop date 01/04/15 8:12:00 PLANT PATHOLOGIST Inactive [place] 01/04/2015 [facility] neostigmine 2 mg=2 mL, Injection, IV, Once, first dose 01/04/15 7:52:00 PLANT PATHOLOGIST, stop date 01/04/15 7:52:00 PLANT PATHOLOGIST Inactive [place] 01/04/2015 [facility] glycopyrrolate 0.2 mg=1 mL, Injection, IV, Once, first dose 01/04/15 7:52:00 PLANT PATHOLOGIST, stop date 01/04/15 7:52:00 PLANT PATHOLOGIST Inactive [place] 01/04/2015 [facility] ePHEDrine 10 mg=0.2 mL, Injection, IV, Once, first dose 01/04/15 7:48:00 PLANT PATHOLOGIST, stop date 01/04/15 7:48:00 PLANT PATHOLOGIST Inactive [place] 01/04/2015 [facility] phenylephrine 0.1 mg=0.01 mL, Injection, IV, Once, first dose 01/04/15 7:42:00 PLANT PATHOLOGIST, stop date 01/04/15 7:42:00 PLANT PATHOLOGIST Inactive [place] 01/04/2015 [facility] phenylephrine 0.1 mg=0.01 mL, Injection, IV, Once, first dose 01/04/15 7:38:00 PLANT PATHOLOGIST, stop date 01/04/15 7:38:00 PLANT PATHOLOGIST Inactive [place] 01/04/2015 [facility] phenylephrine 0.1 mg=0.01 mL, Injection, IV, Once, first dose 01/04/15 7:34:00 PLANT PATHOLOGIST, stop date 01/04/15 7:34:00 PLANT PATHOLOGIST Inactive [place] 01/04/2015 [facility] phenylephrine 0.1 mg=0.01 mL, Injection, IV, Once, first dose 01/04/15 7:30:00 PLANT PATHOLOGIST, stop date 01/04/15 7:30:00 PLANT PATHOLOGIST Inactive [place] 01/04/2015 [facility] dexamethasone 4 mg=1 mL, Injection, IV, Once, first dose 01/04/15 7:30:00 PLANT PATHOLOGIST, stop date 01/04/15 7:30:00 PLANT PATHOLOGIST Inactive [place] 01/04/2015 [facility] acetaminophen 1,000 mg, Soln-IV, IV, Once, first dose 01/04/15 7:30:00 PLANT PATHOLOGIST, stop date 01/04/15 7:30:00 PLANT PATHOLOGIST Inactive [place] 01/04/2015 [facility] ondansetron 4 mg=2 mL, Injection, IV, Once, first dose 01/04/15 7:30:00 PLANT PATHOLOGIST, stop date 01/04/15 7:30:00 PLANT PATHOLOGIST Inactive [place] 01/04/2015 [facility] rocuronium 25 mg=2.5 mL, Injection, IV, Once, first dose 01/04/15 7:07:00 PLANT PATHOLOGIST, stop date 01/04/15 7:07:00 PLANT PATHOLOGIST Inactive [place] 01/04/2015 [facility] propofol 200 mg=20 mL, Emulsion, IV, Once, first dose 01/04/15 7:06:00 PLANT PATHOLOGIST, stop date 01/04/15 7:06:00 PLANT PATHOLOGIST Inactive [place] 01/04/2015 [facility] lidocaine 2 mL, Injection, IV, Once, first dose 01/04/15 7:06:00 PLANT PATHOLOGIST, stop date 01/04/15 7:06:00 PLANT PATHOLOGIST Inactive [place] 01/04/2015 [facility] ceFAZolin 2 gm, Soln-IV, IV, Once, first dose 01/04/15 7:04:00 PLANT PATHOLOGIST, stop date 01/04/15 7:04:00 PLANT PATHOLOGIST Inactive [place] 01/04/2015 [facility] ropivacaine 150 mg=30 mL, Injection, Interscalene, Once, first dose 01/04/15 6:50:00 PLANT PATHOLOGIST, stop date 01/04/15 6:50:00 PLANT PATHOLOGIST Inactive [place] 01/04/2015 [facility] fentaNYL 100 mcg=2 mL, Injection, IV, Once, first dose 01/04/15 6:48:00 PLANT PATHOLOGIST, stop date 01/04/15 6:48:00 PLANT PATHOLOGIST Inactive [place] 01/04/2015 [facility] midazolam 2 mg=2 mL, Injection, IV, Once, first dose 01/04/15 6:48:00 PLANT PATHOLOGIST, stop date 01/04/15 6:48:00 PLANT PATHOLOGIST Inactive [place] 01/04/2015 [facility] Misc Medication 596.82 mL, Soln-IV, IV, Once, first dose 01/20/13 10:26:46 PLANT PATHOLOGIST, stop date 01/20/13 10:26:46 PLANT PATHOLOGIST IV Completed Lillian01/20/2013 [facility] promethazine IVPB 12.5 mg, IV Piggyback, Once PRN for nausea/vomiting, infuse over 15 minutes, first dose 01/20/13 10:17:00 PLANT PATHOLOGIST IV Piggyback No Longer Active Lastoc01/20/2013 [facility] Demerol HCl 12.5 mg=0.5 mL, Injection, IV Push, q5min PRN for pain mild-moderate (1-6), order duration: 4 doses, first dose 01/20/13 10:17:00 PLANT PATHOLOGIST, stop date Limited # of times IV Push No Longer Active Lastoc01/20/2013 [facility] morphine 2 mg=0.2 mL, Injection, IV Push, q5min PRN for pain severe (7-10), order duration: 5 doses, first dose 01/20/13 10:17:00 PLANT PATHOLOGIST, stop date Limited # of times IV Push No Longer Active Lastoc01/20/2013 [facility] acetaminophen 1,000 mg, Soln-IV, IV, Once, first dose 01/20/13 10:06:00 PLANT PATHOLOGIST, stop date 01/20/13 10:06:00 PLANT PATHOLOGIST IV Completed Lillian01/20/2013 [facility] ondansetron 4 mg=2 mL, Injection, IV, Once, first dose 01/20/13 10:03:00 PLANT PATHOLOGIST, stop date 01/20/13 10:03:00 PLANT PATHOLOGIST IV Completed Lillian01/20/2013 [facility] ketorolac 30 mg=1 mL, Injection, IV, Once, first dose 01/20/13 10:03:00 PLANT PATHOLOGIST, stop date 01/20/13 10:03:00 PLANT PATHOLOGIST IV Completed Lillian01/20/2013 [facility] cefazolin 2 gm, Soln-IV, IV Piggyback, Once, infuse over 30 minutes, first dose 01/20/13 10:00:00 PLANT PATHOLOGIST, stop date 01/20/13 10:00:00 PLANT PATHOLOGIST IV Piggyback Completed [place] 01/20/2013 [facility] lidocaine 1% injectable solution 0.5 mL, Injection, Subcutaneous, Once, first dose 01/20/13 10:00:00 PLANT PATHOLOGIST, stop date 01/20/13 10:00:00 PLANT PATHOLOGIST Subcutaneous Completed Lastoczy 01/20/2013 [facility] succinylcholine 80 mg=4 mL, Injection, IV, Once, first dose 01/20/13 9:49:00 PLANT PATHOLOGIST, stop date 01/20/13 9:49:00 PLANT PATHOLOGIST IV Completed Lillian01/20/2013 [facility] fentanyl 100 mcg=2 mL, Injection, IV, Once, first dose 01/20/13 9:49:00 PLANT PATHOLOGIST, stop date 01/20/13 9:49:00 PLANT PATHOLOGIST IV Completed Lillian01/20/2013 [facility] propofol 200 mg=20 mL, Emulsion, IV, Once, first dose 01/20/13 9:49:00 PLANT PATHOLOGIST, stop date 01/20/13 9:49:00 PLANT PATHOLOGIST IV Completed Lillian01/20/2013 [facility] lidocaine 4 mL, Injection, IV, Once, first dose 01/20/13 9:46:00 PLANT PATHOLOGIST, stop 01/20/13 9:46:00 PLANT PATHOLOGIST IV Completed Lillian01/20/2013 [facility] midazolam 2 mg=2 mL, Injection, IV, Once, first dose 01/20/13 9:44:00 PLANT PATHOLOGIST, stop date 01/20/13 9:44:00 PLANT PATHOLOGIST IV Completed Ward01/20/2013 [facility] famotidine 2 mg, Injection, IV, Once, first dose 01/20/13 9:44:00 PLANT PATHOLOGIST, stop date 01/20/13 9:44:00 PLANT PATHOLOGIST IV Completed Lillian01/20/2013 [facility] LR 1,000 mL 1,000 mL, IV, 100 mL/hr, start date 01/20/13 9:07:00 PLANT PATHOLOGIST, For Adults IV No Longer Active Lastoczy 01/20/2013 [facility] Misc Medication 801.65 mL, Soln-IV, IV, Once, first dose 11/11/12 8:37:08 CDT, stop date 11/11/12 8:37:08 CDT IV Completed Yue 11/11/2012 [facility] ondansetron 4 mg=2 mL, Injection, IV Push, q30min PRN for nausea/vomiting, order duration: 2 doses, first dose 11/11/12 8:20:00 CDT, stop date Limited # of times IV Push No Longer Active Arif 11/11/2012 [facility] labetalol 5 mg=1 mL, Injection, IV Push, q5min PRN for hypertension, order duration: 4 doses, first dose 11/11/12 8:20:00 CDT, stop date Limited # of times IV Push No Longer Active [facility] 11/11/2012 [facility] Demerol HCl 12.5 mg=0.5 mL, Injection, IV Push, q5min PRN for pain mild-moderate (1-6), order duration: 4 doses, first dose 11/11/12 8:20:00 CDT, stop date Limited # of times IV Push No Longer Active [facility] 11/11/2012 [facility] morphine 2 mg=0.2 mL, Injection, IV Push, q5min PRN for pain severe (7-10), order duration: 5 doses, first dose 11/11/12 8:20:00 CDT, stop date Limited # of times IV Push No Longer Active [facility] 11/11/2012 [facility] neostigmine 3 mg=3 mL, Injection, IV, Once, first dose 11/11/12 8:16:00 CDT, stop date 11/11/12 8:16:00 CDT IV Completed earnestine11/11/2012 [facility] glycopyrrolate 0.4 mg=2 mL, Injection, IV, Once, first dose 11/11/12 8:16:00 CDT, stop date 11/11/12 8:16:00 CDT IV Completed 11/11/2012 [facility] acetaminophen 1,000 mg, Soln-IV, IV, Once, first dose 11/11/12 7:59:20 CDT, stop date 11/11/12 7:59:20 CDT IV Completed 11/11/2012 [facility] ephedrine 15 mg=0.3 mL, Injection, IV, Once, first dose 11/11/12 7:47:00 CDT, stop date 11/11/12 7:47:00 CDT IV Completed 11/11/2012 [facility] ondansetron 4 mg=2 mL, Injection, IV, Once, first dose 11/11/12 7:41:00 CDT, stop date 11/11/12 7:41:00 CDT IV Completed 11/11/2012 [facility] ketorolac 30 mg=1 mL, Injection, IV, Once, first dose 11/11/12 7:41:00 CDT, stop date 11/11/12 7:41:00 CDT IV Completed 11/11/2012 [facility] rocuronium 35 mg=3.5 mL, Injection, IV, Once, first dose 11/11/12 7:35:00 CDT, stop date 11/11/12 7:35:00 CDT IV Completed 11/11/2012 [facility] lidocaine topical 1 kit, Kit, TOP, Once, first dose 11/11/12 7:35:00 CDT, stop date 11/11/12 7:35:00 CDT TOP Completed 11/11/2012 [facility] propofol 200 mg=20 mL, Emulsion, IV, Once, first dose 11/11/12 7:35:00 CDT, stop date 11/11/12 7:35:00 CDT IV Completed Yue 11/11/2012 [facility] lidocaine 2 mL, Injection, IV, Once, first dose 11/11/12 7:35:00 CDT, stop date 11/11/12 7:35:00 CDT IV Completed aniceto 11/11/2012 [facility] cefazolin 2 gm, Powder-Inj, IV, Once, first dose 11/11/12 7:31:00 CDT, stop date 11/11/12 7:31:00 CDT IV Completed Yue 11/11/2012 [facility] cefazolin 2 gm, Soln-IV, IV Piggyback, Once, infuse over 30 minutes, first dose 11/11/12 7:00:00 CDT, stop date 11/11/12 7:00:00 CDT IV Piggyback Completed Muscat 11/11/2012 [facility] ropivacaine 25 mL, Injection, IV, Once, first dose 11/11/12 6:51:00 CDT, stop date 11/11/12 6:51:00 CDT IV Completed aniceto 11/11/2012 [facility] midazolam 2 mg=2 mL, Injection, IV, Once, first dose 11/11/12 6:46:00 CDT, stop date 11/11/12 6:46:00 CDT IV Completed aniceto 11/11/2012 [facility] fentanyl 100 mcg=2 mL, Injection, IV, Once, first dose 11/11/12 6:46:00 CDT, stop date 11/11/12 6:46:00 CDT IV Completed Yue 11/11/2012 [facility] LR 1,000 mL 1,000 mL, IV, 100 mL/hr, start date 11/11/12 6:13:00 CDT, For Adults IV No Longer Active Shakaharish 11/11/2012 [facility] omeprazole 40 mg oral delayed release capsule 40 mg=1 caps, Oral, Daily, 0 Refill(s) Active 11/05/2012 [facility] Petrolia 7.5 mg-325 mg oral tablet 1 tabs, Oral, q6hr, 0 Refill(s) Active 11/05/2012 [facility] Lunesta 3 mg oral tablet 3 mg=1 tabs, Oral, qHS, PRN for insomnia, 0 Refill(s) Active 11/05/2012 [facility] Omeprazole 40 MG Enteric Coated Capsule 40 mg=1 caps, Oral, Daily, 0 Refill(s) Active 11/05/2012 [facility] Acetaminophen 325 MG / Hydrocodone Bitartrate 7.5 MG Oral Tablet [Petrolia 7.5/325] 1 tabs, Oral, q6hr, 0 Refill(s) Active 11/05/2012 [facility] Eszopiclone 3 MG Oral Tablet [Lunesta] 3 mg=1 tabs, Oral, qHS, PRN for insomnia, 0 Refill(s) Active 11/05/2012 [facility] Keppra 500 mg oral tablet 500 mg=1 tabs, Oral, BID, 0 Refill(s) Active 11/05/2012 [facility] Levetiracetam 500 MG Oral Tablet [Keppra] 500 mg=1 tabs, Oral, BID, 0 Refill(s) Active 11/05/2012 [facility] Allergies, Adverse Reactions, Alerts No Known Medication Allergies Immunizations No Data Provided for This Section Results Order Name Results Value Reference Range Date Interpretation Comments Source LABORATORY FIO2 21 06/05/2016 [facility] LABORATORY FIO2 21 03/08/2015 [facility] LABORATORY FIO2 21 01/20/2013 [facility] Pathology Reports No Data Provided for This Section Diagnostic Reports No Data Provided for This Section Consultation Notes No Data Provided for This Section Discharge Summaries No Data Provided for This Section History and Physicals No Data Provided for This Section Vital Signs Vital Sign Value Date Comments [...] 05/29/2016 [facility] Heart Rate 97 03/11/2015 [facility] Respitory Rate 16 03/11/2015 [facility] Systolic (mm Hg) 141/89 03/11/2015 [facility] Temperature Oral (F) 36.9 Ekaterina 03/11/2015 [facility] Heart Rate 92 03/11/2015 [facility] Respitory Rate 18 03/11/2015 [facility] Systolic (mm Hg) 145/84 03/11/2015 [facility] Temperature Oral (F) 36.7 Ekaterina 03/11/2015 [facility] Systolic (mm Hg) 163/94 03/11/2015 [facility] Respitory Rate 16 03/11/2015 [facility] Heart Rate 100 03/11/2015 [facility] Temperature Oral (F) 37.4 Ekaterina 03/11/2015 [facility] Peripheral Pulse Rate 89 03/09/2015 [facility] Peripheral Pulse Rate 94 03/09/2015 [facility] Peripheral Pulse Rate 77 03/09/2015 [facility] Temperature Oral (F) 36.9 Ekaterina 03/08/2015 [facility] Temperature Oral (F) 36.6 Ekaterina 03/08/2015 [facility] Height 175 cm 03/08/2015 [facility] Weight 80.4 03/08/2015 [facility] Weight 26 03/08/2015 [facility] Weight 26.25 02/24/2015 [facility] Weight 80.4 02/24/2015 [facility] Height 175 cm 02/24/2015 [facility] Systolic (mm Hg) 138/76 01/04/2015 [facility] Heart Rate 60 01/04/2015 [facility] Respitory Rate 11 01/04/2015 [facility] Heart Rate 60 01/04/2015 [facility] Systolic (mm Hg) 135/77 01/04/2015 [facility] Respitory Rate 10 01/04/2015 [facility] Respitory Rate 11 01/04/2015 [facility] Heart Rate 66 01/04/2015 [facility] Systolic (mm Hg) 116/77 01/04/2015 [facility] Temperature Oral (F) 36.3 Ekaterina 01/04/2015 [facility] Temperature Oral (F) 37 Ekaterina 01/04/2015 [facility] Peripheral Pulse Rate 71 01/04/2015 [facility] Weight 27 01/04/2015 [facility] Weight 83.3 01/04/2015 [facility] Height 175 cm 01/04/2015 [facility] Height 175 cm 12/24/2014 [facility] Weight 83.3 12/24/2014 [facility] Weight 27.2 12/24/2014 [facility] Systolic (mm Hg) 145 01/20/2013 [facility] Respitory Rate 16 01/20/2013 [facility] Diastolic (mm Hg) 69 01/20/2013 [facility] Heart Rate 81 01/20/2013 [facility] Diastolic (mm Hg) 88 01/20/2013 [facility] Systolic (mm Hg) 140 01/20/2013 [facility] Heart Rate 76 01/20/2013 [facility] Respitory Rate 14 01/20/2013 [facility] Diastolic (mm Hg) 85 01/20/2013 [facility] Systolic (mm Hg) 142 01/20/2013 [facility] Respitory Rate 14 01/20/2013 [facility] Heart Rate 78 01/20/2013 [facility] Temperature Oral (F) 36.2 Ekaterina 01/20/2013 [facility] Body Mass Index 27.20 01/20/2013 [facility] Heart Rate 70 01/20/2013 [facility] Weight 83.3 01/20/2013 [facility] Height 175 cm 01/20/2013 [facility] Body Mass Index 27.20 01/17/2013 [facility] Weight 83.3 01/17/2013 [facility] Height 175 cm 01/17/2013 [facility] Heart Rate 77 01/17/2013 [facility] Temperature Oral (F) 36.6 Ekaterina 01/17/2013 [facility] Diastolic (mm Hg) 88 11/11/2012 [facility] Systolic (mm Hg) 152 11/11/2012 [facility] Respitory Rate 12 11/11/2012 [facility] Heart Rate 65 11/11/2012 [facility] Systolic (mm Hg) 151 11/11/2012 [facility] Respitory Rate 12 11/11/2012 [facility] Heart Rate 62 11/11/2012 [facility] Diastolic (mm Hg) 89 11/11/2012 [facility] Diastolic (mm Hg) 89 11/11/2012 [facility] Systolic (mm Hg) 157 11/11/2012 [facility] Heart Rate 64 11/11/2012 [facility] Respitory Rate 13 11/11/2012 [facility] Temperature Oral (F) 36.2 Ekaterina 11/11/2012 [facility] Weight 78 11/11/2012 [facility] Height 175 cm 11/11/2012 [facility] Body Mass Index 25.47 11/11/2012 [facility] Heart Rate 58 11/11/2012 [facility] Height 175 cm 11/05/2012 [facility] Heart Rate 60 11/05/2012 [facility] Temperature Oral (F) 36.9 Ekaterina 11/05/2012 [facility] Weight 75.9 11/05/2012 [facility] Encounters Location Location Details Encounter Type Encounter Number Reason For Visit Attending Provider ADM Date DC Date Status Source [facility] Outpatient [id number] Ayo Sommer 11/11/2012 11/11/2012 Discharged [facility] Outpatient [id number] Ayo Sommer 01/20/2013 01/20/2013 Discharged [facility] Outpatient [id number] Ayo Sommer 01/04/2015 01/04/2015 Discharged [facility] Inpatient [id number] Fox Erickson MD 03/08/2015 03/11/2015 Discharged [facility] Outpatient [id number] Ayo Sommer 06/05/2016 06/05/2016 Discharged [facility] Outpatient [id number] Ayo Pabonat 06/05/2016 06/05/2016 [facility] Procedures Procedure Code Date Perfomer Comments Source Introduction of Regional Anesthetic into Peripheral Nerves and Plexi, Percutaneous Approach 03/08/2015 [facility] Replacement of Left Knee Joint with Synthetic Substitute, Cemented, Open Approach 03/08/2015 [facility] RIGHT FEMUR [facility] RIGHT KNEE SCOPE(MANY) [facility] RIGTH KNEE REPLACEMENT [facility] right shoulder scope [facility] left knee replacement [facility] Assessment and Plan No Data Provided for This Section Plan of Care No Data Provided for This Section Social History Social History Date Source No data available for this section 06/05/2016 [facility] Family History No Data Provided for This Section Advance Directives No Data Provided for This Section Functional Status No Data Provided for This Section
[2018-11-07 07:15] VITALS: BP 116/88
== END | disposition home or self-care (01) ==
LOC: OR 05:08
PROVIDERS: ATTEND Physical Medicine & Rehabilitation Pain Medicine
DX: M53.3 Sacrococcygeal disorders, not elsewhere classified (principal); G40.802 Other epilepsy, not intractable, without status epilepticus; M46.1 Sacroiliitis, not elsewhere classified; M54.16 Radiculopathy, lumbar region; K21.9 Gastro-esophageal reflux disease without esophagitis; Z01.810 Encounter for preprocedural cardiovascular examination; Z91.81 History of falling
CPT/HCPCS: 64999; 93005; J2001 ×2; J2250; J2704; J3010; J3301; Q9967; 77003

== ENCOUNTER → 2019-09-04 | Day surgery (SDC) | payer OTHER ==
[~2019-09-04] MED LIST changes: +[UNRECOGNIZED DRUG - CODE] PO
[2019-09-04 07:20] VITALS: BP 116/84
== END | disposition home or self-care (01) ==
LOC: OR 06:05
PROVIDERS: ATTEND Physical Medicine & Rehabilitation Pain Medicine
DX: M53.3 Sacrococcygeal disorders, not elsewhere classified (principal); M46.1 Sacroiliitis, not elsewhere classified; K21.9 Gastro-esophageal reflux disease without esophagitis; K44.9 Diaphragmatic hernia without obstruction or gangrene; G40.802 Other epilepsy, not intractable, without status epilepticus; Z01.810 Encounter for preprocedural cardiovascular examination; Z01.812 Encounter for preprocedural laboratory examination; Z11.59 Encounter for screening for other viral diseases; Z96.651 Presence of right artificial knee joint
CPT/HCPCS: 64999; 93005; J2001 ×2; J2250; J2704; J3010; J3301; Q9967; U0002; 77003

== ENCOUNTER → 2020-01-08 | Day surgery (SDC) | payer MEDICARE, OTHER ==
[~2020-01-08] MED LIST changes: -BUPIVACAINE 0.25% 30ML SDV INJ ONE; +BUPIVACAINE 0.25% 30ML SDV ONE
[2020-01-08 07:23] VITALS: BP 127/98
== END | disposition home or self-care (01) ==
LOC: OR 05:34
PROVIDERS: ATTEND Physical Medicine & Rehabilitation Pain Medicine
DX: M53.3 Sacrococcygeal disorders, not elsewhere classified (principal); M47.816 Spondylosis without myelopathy or radiculopathy, lumbar region; M54.16 Radiculopathy, lumbar region; R03.0 Elevated blood-pressure reading, without diagnosis of hypertension; K44.9 Diaphragmatic hernia without obstruction or gangrene; Z01.810 Encounter for preprocedural cardiovascular examination; Z01.812 Encounter for preprocedural laboratory examination; Z20.828 Contact with and (suspected) exposure to other viral communicable diseases
CPT/HCPCS: 64999; 93005; J2001 ×2; J2250; J2704; J3010; J3301; Q9967; U0002; 77003

== ENCOUNTER → 2020-09-23 | Day surgery (SDC) | payer MEDICARE ==
[~2020-09-23] MED LIST changes: -LIDOCAINE HCL 2% LOCAL INJ 5 ML SDV VIAL INJ ONE; +POVIDONE IODINE 0.05% 0.05 % ML PO ONE
[2020-09-23 07:20] VITALS: BP 112/67
== END | disposition home or self-care (01) ==
LOC: OR 05:35
PROVIDERS: ATTEND Physical Medicine & Rehabilitation Pain Medicine
DX: M53.3 Sacrococcygeal disorders, not elsewhere classified (principal); M54.16 Radiculopathy, lumbar region; M47.816 Spondylosis without myelopathy or radiculopathy, lumbar region; G89.29 Other chronic pain; K21.9 Gastro-esophageal reflux disease without esophagitis; K44.9 Diaphragmatic hernia without obstruction or gangrene; G40.802 Other epilepsy, not intractable, without status epilepticus; Z01.810 Encounter for preprocedural cardiovascular examination; Z01.812 Encounter for preprocedural laboratory examination; Z20.822 Contact with and (suspected) exposure to COVID-19; Z91.81 History of falling
CPT/HCPCS: 64999; 93005; J2001; J2250; J2704; J3010; J3301; Q9967; U0002; 77002

== ENCOUNTER → 2021-02-17 | Day surgery (SDC) | payer MEDICARE ==
[~2021-02-17] MED LIST changes: -BUPIVACAINE 0.25% 30ML SDV ONE; +LIDOCAINE HCL 2% LOCAL INJ 5 ML SDV VIAL INJ ONE
[2021-02-17 06:50] VITALS: BP 107/87
== END | disposition home or self-care (01) ==
LOC: OR 06:05
PROVIDERS: ATTEND Physical Medicine & Rehabilitation Pain Medicine
DX: M53.3 Sacrococcygeal disorders, not elsewhere classified (principal); G89.4 Chronic pain syndrome; K21.9 Gastro-esophageal reflux disease without esophagitis; Z01.810 Encounter for preprocedural cardiovascular examination; Z20.822 Contact with and (suspected) exposure to COVID-19; Z79.899 Other long term (current) drug therapy
CPT/HCPCS: 64999; 77003; 93005; J2001 ×2; J2250; J2704; J3010; J3301; Q9967; U0002

== ENCOUNTER → 2021-07-07 | Day surgery (SDC) | payer MEDICARE, BC ==
[~2021-07-07] MED LIST changes: +BLACK ELDERBER1 EACH; +BUPIVACAINE 0.25% 30ML SDV ONE; +MULTI-VITAMIN1 EACH PO
[2021-07-07 07:44] VITALS: BP 122/62
== END | disposition home or self-care (01) ==
LOC: OR 05:53
PROVIDERS: ATTEND Physical Medicine & Rehabilitation Pain Medicine
DX: M53.3 Sacrococcygeal disorders, not elsewhere classified (principal); K21.9 Gastro-esophageal reflux disease without esophagitis; R00.1 Bradycardia, unspecified; Z01.810 Encounter for preprocedural cardiovascular examination; Z01.812 Encounter for preprocedural laboratory examination; Z20.822 Contact with and (suspected) exposure to COVID-19
CPT/HCPCS: 64999; 93005; J2001 ×2; J2250; J2704; J3010; J3301; Q9967; U0002; 77003

== ENCOUNTER → 2021-11-03 | Day surgery (SDC) | payer MEDICARE, BC ==
[2021-11-03 06:50] VITALS: BP 127/81
== END | disposition home or self-care (01) ==
LOC: OR 05:58
PROVIDERS: ATTEND Physical Medicine & Rehabilitation Pain Medicine
DX: M53.3 Sacrococcygeal disorders, not elsewhere classified (principal); G89.4 Chronic pain syndrome; M47.816 Spondylosis without myelopathy or radiculopathy, lumbar region; M54.16 Radiculopathy, lumbar region; M25.512 Pain in left shoulder; G40.802 Other epilepsy, not intractable, without status epilepticus; K21.9 Gastro-esophageal reflux disease without esophagitis; Z01.810 Encounter for preprocedural cardiovascular examination; Z96.651 Presence of right artificial knee joint; Z91.81 History of falling; Z86.16 Personal history of COVID-19
CPT/HCPCS: 64999; 93005; J2001 ×2; J2250; J2704; J3010; J3301; Q9967; 77003

== ENCOUNTER → 2022-06-01 | Day surgery (SDC) | payer MEDICARE, BC ==
[~2022-06-01] MED LIST changes: -FENTANYL CITRATE/PF 100MCG/2 ML INJ ONE; +LACTATED RINGER'S 1,000 ML ONE; -MIDAZOLAM HCL 2 MG/2 ML VIAL ONE; +ULTRAM 50MG50 MG PO
[2022-06-01 06:50] VITALS: BP 114/79
== END | disposition home or self-care (01) ==
LOC: OR 07:05
PROVIDERS: ATTEND Physical Medicine & Rehabilitation Pain Medicine
DX: M53.3 Sacrococcygeal disorders, not elsewhere classified (principal); G89.4 Chronic pain syndrome; M47.816 Spondylosis without myelopathy or radiculopathy, lumbar region; M54.16 Radiculopathy, lumbar region; G40.909 Epilepsy, unspecified, not intractable, without status epilepticus; N15.8 Other specified renal tubulo-interstitial diseases; Z01.810 Encounter for preprocedural cardiovascular examination; Z79.899 Other long term (current) drug therapy; Z91.81 History of falling; Z96.652 Presence of left artificial knee joint; Z86.16 Personal history of COVID-19
CPT/HCPCS: 64999; 93005; J2001 ×2; J2704; J3301; J7121; Q9967; 77003

== ENCOUNTER → 2022-08-31 | Day surgery (SDC) | payer MEDICARE, BC ==
[~2022-08-31] MED LIST changes: +DEXAMETHASONE SOD PHOS 10 MG/1 ML VIAL ONE; +FENTANYL CITRATE/PF 100MCG/2 ML INJ ONE; -LIDOCAINE HCL 1% 30ML-PF VIAL ONE
[2022-08-31 06:44] VITALS: TEMP 97.1
[2022-08-31 07:05] VITALS: BP 129/78; PULSE 67; RESP 16; O2SAT 96
== END | disposition home or self-care (01) ==
LOC: OR 05:30
PROVIDERS: ATTEND Physical Medicine & Rehabilitation Pain Medicine
DX: M53.3 Sacrococcygeal disorders, not elsewhere classified (principal); G89.4 Chronic pain syndrome; Z91.81 History of falling; M47.816 Spondylosis without myelopathy or radiculopathy, lumbar region; M54.16 Radiculopathy, lumbar region; G40.802 Other epilepsy, not intractable, without status epilepticus; N15.8 Other specified renal tubulo-interstitial diseases; K21.9 Gastro-esophageal reflux disease without esophagitis; Z79.899 Other long term (current) drug therapy
CPT/HCPCS: 64999; 77003; J1100; J2001; J2704; J3010; J3301; J7121; Q9967

== ENCOUNTER → 2023-08-29 | Day surgery (SDC) | payer MEDICARE, BC ==
[~2023-08-29] MED LIST changes: -DEXAMETHASONE SOD PHOS 10 MG/1 ML VIAL ONE; -FENTANYL CITRATE/PF 100MCG/2 ML INJ ONE; +LIDOCAINE HCL 1% 30ML-PF VIAL ONE; -POVIDONE IODINE 0.05% 0.05 % ML PO ONE
[2023-08-29 10:18] VITALS: TEMP 97.6
[2023-08-29 10:38] VITALS: BP 139/88; PULSE 71; RESP 18; O2SAT 99
== END | disposition home or self-care (01) ==
LOC: OR 08:29
PROVIDERS: ATTEND Physical Medicine & Rehabilitation Pain Medicine
DX: M53.3 Sacrococcygeal disorders, not elsewhere classified (principal); G89.4 Chronic pain syndrome; G40.802 Other epilepsy, not intractable, without status epilepticus; K21.9 Gastro-esophageal reflux disease without esophagitis; Z79.899 Other long term (current) drug therapy
CPT/HCPCS: 77002; J2001; J3301; Q9967

== ENCOUNTER → 2023-11-28 | Day surgery (SDC) | payer MEDICARE ==
[~2023-11-28] MED LIST changes: -BUPIVACAINE 0.25% 30ML SDV ONE; +DEXAMETHASONE SOD PHOS 10 MG/1 ML VIAL ONE; +KETAMINE HCL INJ 50 MG/ML 10 ML VIAL ONE; -LACTATED RINGER'S 1,000 ML ONE; -TRIAMCINOLONE ACET 40 MG/ML VIAL ONE
[2023-11-28] MEDS: LACTATED RINGER'S 1,000 ML ONE (08:16)
[2023-11-28 10:35] VITALS: BP 153/82; PULSE 74; RESP 16; O2SAT 97
== END | disposition home or self-care (01) ==
LOC: OR 07:57
PROVIDERS: ATTEND Physical Medicine & Rehabilitation Pain Medicine
DX: M54.16 Radiculopathy, lumbar region (principal); M53.3 Sacrococcygeal disorders, not elsewhere classified; G89.4 Chronic pain syndrome; G40.802 Other epilepsy, not intractable, without status epilepticus; Z79.899 Other long term (current) drug therapy; Z96.651 Presence of right artificial knee joint; Z91.81 History of falling
CPT/HCPCS: 64483; 64484; J1100; J2001 ×2; J2704; J7121; Q9967; 77002

== ENCOUNTER → 2023-12-05 | Day surgery (SDC) | payer MEDICARE ==
[~2023-12-05] MED LIST changes: +BUPIVACAINE HCL 0.5% INJ 30 ML VIAL INJ ONE; -DEXAMETHASONE SOD PHOS 10 MG/1 ML VIAL ONE; -KETAMINE HCL INJ 50 MG/ML 10 ML VIAL ONE; -LIDOCAINE HCL 1% 30ML-PF VIAL ONE; +TRIAMCINOLONE ACET 40 MG/ML VIAL ONE
[2023-12-05] MEDS: LACTATED RINGER'S 1,000 ML ONE (09:40)
[2023-12-05 10:26] VITALS: TEMP 97.1
[2023-12-05 10:40] VITALS: BP 116/84; PULSE 65; RESP 16; O2SAT 97
== END | disposition home or self-care (01) ==
LOC: OR 08:51
PROVIDERS: ATTEND Physical Medicine & Rehabilitation Pain Medicine
DX: M53.3 Sacrococcygeal disorders, not elsewhere classified (principal); M54.16 Radiculopathy, lumbar region; M47.816 Spondylosis without myelopathy or radiculopathy, lumbar region; G89.4 Chronic pain syndrome; Z91.81 History of falling; G40.802 Other epilepsy, not intractable, without status epilepticus; Z79.899 Other long term (current) drug therapy; Z96.652 Presence of left artificial knee joint
CPT/HCPCS: 64999; J2003; J2704; J3301; J7121; Q9967; 77002

== ENCOUNTER → 2024-04-16 | Day surgery (SDC) | payer MEDICARE ==
[2024-04-14 10:51] LABS: BASOPHILS % 0.5 % (0.0-1.0); EOSINOPHILS # (AUTO) 0.3 (0.0-0.4); EOSINOPHILS % 5.4 % (0.0-6.0); HEMATOCRIT 39.8 % (38.2-49.6); HEMOGLOBIN 14.1 g/dL (14.0-18.0); LYMPHOCYTES # (AUTO) 0.7 (1.0-3.2); LYMPHOCYTES % 12.3 % (18.0-39.1); MEAN CORPUSCULAR HEMOGLOBIN 33.6 pg (28-32); MEAN CORPUSCULAR HGB CONC 35.4 g/dL (31-35); MEAN CORPUSCULAR VOLUME 94.8 fL (81-99); MONOCYTES # (AUTO) 0.4 (0.2-0.8); MONOCYTES % 7.5 % (4.4-11.3); NEUTROPHILS # (AUTO) 4.2 (2.1-6.9); NEUTROPHILS % 73.9 % (38.7-80.0); PLATELET COUNT 501 x10e3/uL (140-360); RED CELL DISTRIBUTION WIDTH 12.1 % (11.7-14.4); WHITE BLOOD COUNT 5.71 x10e3/uL (4.8-10.8)
[~2024-04-16] MED LIST changes: -BUPIVACAINE HCL 0.5% INJ 30 ML VIAL INJ ONE; +HYDRALAZINE HCL 20 MG/ML VIAL ONE; +KETOROLAC TROMETHAMINE 30 MG/ML VIAL ONE; +MELOXICAM7.5 MG PO; -TRIAMCINOLONE ACET 40 MG/ML VIAL ONE; +TUMERIC
[2024-04-16] MEDS: LACTATED RINGER'S 1,000 ML ONE (08:59)
[2024-04-16 12:50] VITALS: BP 165/101; PULSE 78; RESP 18; O2SAT 97
== END | disposition home or self-care (01) ==
LOC: OR 08:18
PROVIDERS: ATTEND Physical Medicine & Rehabilitation Pain Medicine
DX: M53.3 Sacrococcygeal disorders, not elsewhere classified (principal); G89.4 Chronic pain syndrome; M47.816 Spondylosis without myelopathy or radiculopathy, lumbar region; G40.802 Other epilepsy, not intractable, without status epilepticus; K21.9 Gastro-esophageal reflux disease without esophagitis; Z01.810 Encounter for preprocedural cardiovascular examination; Z01.812 Encounter for preprocedural laboratory examination; Z79.1 Long term (current) use of non-steroidal anti-inflammatories (NSAID); Z79.899 Other long term (current) drug therapy; Z96.651 Presence of right artificial knee joint; Z91.81 History of falling
CPT/HCPCS: 36415; 64999; 85025; 93005; J1885; J2003; J2704; J7121; Q9967; 77002; J0360

== ENCOUNTER → 2024-11-19 | Day surgery (SDC) | payer MEDICARE ==
[2024-11-14 12:03] LABS: BASOPHILS % 0.6 % (0.0-1.0); EOSINOPHILS % 2.4 % (0.0-6.0); LYMPHOCYTES % 16.0 % (18.0-39.1); MONOCYTES % 9.0 % (4.4-11.3); NEUTROPHILS % 71.8 % (38.7-80.0); RED CELL DISTRIBUTION WIDTH 12.6 % (11.7-14.4)
[~2024-11-19] MED LIST changes: -HYDRALAZINE HCL 20 MG/ML VIAL ONE; +HYDREA500 MG PO; -IOPAMIDOL 200 MG/ML 20 ML VIAL IT ONE; -KETOROLAC TROMETHAMINE 30 MG/ML VIAL ONE; +NEURONTIN100 MG PO
[2024-11-19 10:00] VITALS: BP 114/79; PULSE 81; RESP 16; O2SAT 99
== END | disposition home or self-care (01) ==
LOC: OR 08:23
PROVIDERS: ATTEND Physical Medicine & Rehabilitation Pain Medicine
DX: M53.3 Sacrococcygeal disorders, not elsewhere classified (principal); G89.4 Chronic pain syndrome; K21.9 Gastro-esophageal reflux disease without esophagitis; Z01.810 Encounter for preprocedural cardiovascular examination; Z01.812 Encounter for preprocedural laboratory examination; Z79.899 Other long term (current) drug therapy
CPT/HCPCS: 36415; 64999; 85025; 93005; J2003; J2704; 77002